=== PATIENT | male | born 1970 | race American Indian/Alaskan Native ===

== ENCOUNTER 2017-05-31 21:59 | Observation (INO) | payer MEDICARE, MEDICAID, OTHER ==
[2017-05-31 21:59] VITALS: PULSE 112
[2017-05-31 22:27] VITALS: BMI 29.0
[2017-05-31] MEDS ORDERED: Morphine 4 mg/ml ISec IVP STA (22:42)
[2017-05-31 23:09] LABS: BASO # 0.02 K/mm3 (0.0-2.0); BASO % 0.3 % (0.0-3.0); EOS % 0.5 % (1.5-5.0); GRAN # 6.2 (1.4-6.5); GRAN % 79.6 % (50.0-68.0); HEMATOCRIT 42.7 % (42.0-52.0); LYMPH % 13.1 % (22.0-35.0); MEAN CELL VOLUME 89.1 fl (80.0-105.0); MEAN CORPUSCULAR HEMOGLOBIN 31.1 pg (25.0-35.0); MEAN CORPUSCULAR HGB CONC 34.9 g/dl (31.0-37.0); MEAN PLATELET VOLUME 9.7 fl (7.0-11.0); MONO # 0.5 (0.1-0.6); MONO % 6.5 % (1.0-6.0); RED CELL DISTRIBUTION WIDTH 13.9 % (11.5-14.5); WHITE BLOOD COUNT 7.8 10^3/ul (4.5-11.0)
--- NOTE | 2017-05-31 23:14 | ED PDOC ---
Arrival/HPI - General Chief Complaint: Abdominal Pain Time Seen by Provider: 05/31/17 22:42 Historian: Patient - History of Present Illness Narrative History of Present Illness (Text): 05/31/17 23:05 A 46 year old male whose past medical history includes CHF and diabetes, presents to the emergency department complaining of a right femoral hernia and bilateral lower extremity swelling. The patient states that he has had the hernia for the past year, but has not seen his PMD. The patient notes that he had nausea yesterday. The patient denies fevers, chills, headache, dizziness, vomiting, diarrhea, back pain, neck pain, chest pain, shortness of breath or any other complaint. Time/Duration: Other (1 year) Symptom Onset: Sudden Symptom Course: Unchanged Activities at Onset: Rest, Light Context: Home Past Medical History - Provider Review Nursing Documentation Reviewed: Yes - Infectious Disease Hx of Infectious Diseases: None - Cardiac Hx Congestive Heart Failure: Yes Hx Hypertension: Yes Other/Comment: defibrillator - Pulmonary Hx Respiratory Disorders: No - Neurological Hx Neurological Disorder: No - HEENT Hx HEENT Disorder: No - Renal Hx Renal Disorder: No - Endocrine/Metabolic Hx Diabetes Mellitus Type 2: Yes - Hematological/Oncological Hx Blood Disorders: No - Integumentary Hx Dermatological Disorder: No - Musculoskeletal/Rheumatological Hx Musculoskeletal Disorders: No - Gastrointestinal Hx Gastrointestinal Disorders: No - Genitourinary/Gynecological Hx Genitourinary Disorders: No - Psychiatric Hx Psychophysiologic Disorder: No Hx Substance Use: No - Surgical History Hx Cholecystectomy: Yes Other/Comment: defibrilator, gallbladder removed. - Anesthesia Hx Anesthesia: Yes Hx Anesthesia Reactions: No Hx Malignant Hyperthermia: No Family/Social History - Physician Review Nursing Documentation Reviewed: Yes Family/Social History: No Known Family HX Smoking Status: Light Smoker < 10 Cigarettes Daily Hx Alcohol Use: Yes Hx Substance Use: No Allergies/Home Meds Allergies/Adverse Reactions: Allergies lisinopril Allergy (Verified 10/29/16 22:31) ANGIOEDEMA Home Medications: Home Meds Medication Instructions Recorded Confirmed No Known Home Med 06/01/17 06/01/17 Physical Exam - Physical Exam Narrative Physical Exam (Text): - Review of Systems Constitutional: Normal. absent: Fatigue, Weight Change, Fevers Eyes: Normal ENT: Normal Respiratory: Normal absent: SOB, Cough, Sputum Cardiovascular: Normal absent: Chest pain, Palpitations, Syncope Gastrointestinal: (+) femoral hernia, Nausea. absent: Diarrhea, Vomiting Genitourinary: Present: Normal absent: Dysuria, Frequency, Hematuria Musculoskeletal: (+) lower extremity swelling . absent: Arthralgias, Back Pain , Neck Pain Skin: Normal Neurological: Normal absent: Focal Weakness Endocrine: Normal Hemo/Lymphatic: Normal Psychiatric: Normal - Physical exam Patient appears age appropriate, speaking full sentences without difficulty - Systems Exam Head: Present: Atraumatic, Normocephalic Pupils: Present: PERRL Extraocular Muscles: Present: EOMI Conjunctiva: Present: Normal Mouth: Present: Moist Mucous Membranes Neck: Present: Normal Range of Motion. No: MIDLINE TENDERNESS, Paraspinal Tenderness Respiratory/Chest: Present: Clear to Auscultation, Good Air Exchange. No: Respiratory Distress, Accessory Muscle Use, Tachypneic Cardiovascular: Present: Regular Rate and Rhythm, Normal S1, S2, Peripheral Pulses Present. No: Murmurs Abdomen: Present: enlarged, 9cm reducible femoral hernia. Normal Bowel Sounds No: Tenderness, Peritoneal Signs, Rebound, Guarding, Distention Back: Present: Normal Inspection. No: Midline Tenderness, Paraspinal Tenderness Upper Extremity: Present: Normal Inspection. No: Cyanosis, Edema Lower Extremity: Present: Bilateral lower extremity swelling. +1 trace edema Neurological: Present: GCS=15, Speech Normal, cranial nerves II through XII fully intact with no cerebellar abnormality, neuro-sensory fully intact. No focal neurological deficits. Skin: Present: Warm, Dry, Normal Color. No: Rashes Lymphatic: Present: OX3, NI, NC Psychiatric: Present: Alert, Oriented x 3, Normal Insight, Normal Concentration Vital Signs Reviewed: Yes Vital Signs Temp Pulse Resp BP Pulse Ox 06/01/17 01:18 89 17 124/75 98 06/01/17 01:13 124/75 05/31/17 23:28 98.7 F 05/31/17 22:55 105 H 18 127/82 98 Temperature: Afebrile Blood Pressure: Normal Pulse: Regular Respiratory Rate: Normal Appearance: Positive for: Well-Appearing, Non-Toxic, Comfortable Pain Distress: None Mental Status: Positive for: Alert and Oriented X 3 Medical Decision Making ED Course and Treatment: 05/31/17 23:23 Impression: A 46 year old male presents with pain around his femoral hernia and lower extremity swelling. On exam, enlarged, 9cm reducible femoral hernia and bilateral lower extremity swelling. Plan: -- EKG -- Abdomen/ Pelvis CT -- Chest X-Ray -- Urinalysis -- Morphine -- Reassess and disposition Progress Notes: 06/01/17 01:02 CT IMPRESSION: 1. No hernia. 2. Incidental/non-acute findings are described above. Dictated and Authenticated by: Vincenzo Cote MD BNP elevated CXR shows cardiomegaly, mild vasc congestion, no infiltrates. interpreted by me. pt will be observed on tele for acute CHF 06/01/17 01:[address] He, accepted obs to hospitalist service pt aware of and agrees with plan 06/01/17 01:11 EKG shows normal sinus 82 bpm, no st-segment elevations. lateral t-wave inversions. interpreted by me. - Lab Interpretations Lab Results: 05/31/17 22:55 05/31/17 22:55 Lab Results 06/01/17 01:00: Urine Color Yellow, Urine Appearance Clear, Urine pH 7.0, Ur Specific [place] 1.010, Urine Protein Negative, Urine Glucose (UA) Negative, Urine Ketones Negative, Urine Blood Negative, Urine Nitrate Negative, Urine Bilirubin Negative, Urine Urobilinogen 0.2, Ur Leukocyte Esterase Negative 05/31/17 23:40: Blood Type Confirm AB POSITIVE 05/31/17 22:55: Sodium 136, Potassium 3.4 L, Chloride 95 L, Carbon Dioxide 33, Anion Gap 11, BUN 23 H, Creatinine 1.1, Est GFR ( Amer) > 60, Est GFR ( Non-Af Amer) > 60, Random Glucose 178 H, Calcium 8.7, Total Bilirubin 1.5 H, AST 49, ALT 99 H, Alkaline Phosphatase 85, Lactate Dehydrogenase 483, Total Creatine Kinase 161, Troponin I 0.05, NT-Pro-B Natriuret Pep 4830 H, Total Protein 6.7, Albumin 3.8, Globulin 2.9, Albumin/Globulin Ratio 1.3 05/31/17 22:55: PT 12.6 H, INR 1.17 H, APTT 25.2 05/31/17 22:55: WBC 7.8, RBC 4.79, Hgb 14.9, Hct 42.7, MCV 89.1, MCH 31.1, MCHC 34.9, RDW 13.9, Plt Count 227, MPV 9.7, Gran % 79.6 H, Lymph % (Auto) 13.1 L, Fleming % (Auto) 6.5 H, Eos % (Auto) 0.5 L, Baso % (Auto) 0.3, Gran # 6.20, Lymph # 1.0 L, Fleming # 0.5, Eos # 0.0, Baso # 0.02 05/31/17 22:55: Blood Type AB POSITIVE, Antibody Screen Negative, BBK History Checked No verified bt I have reviewed the lab results: Yes - RAD Interpretation Radiology Orders: 05/31/17 22:43 ABD & PELVIS W/O PO OR IV CONT [CT] Stat 05/31/17 22:44 CHEST PORTABLE [RAD] Stat - EKG Interpretation Interpreted by ED Physician: Yes Type: 12 lead EKG - Medication Orders Current Medication Orders: Insulin Human Lispro (Humalog Low) 0 units SC ACHS MICHELLE PRN Reason: Protocol Discontinued Medications Aspirin (Aspirin Chewable) 324 mg PO STAT STA Stop: 06/01/17 01:01 Last Admin: 06/01/17 01:12 Dose: 324 mg Furosemide (Lasix) 40 mg IVP STAT STA Stop: 06/01/17 01:01 Last Admin: 06/01/17 01:13 Dose: 40 mg Morphine Sulfate (Morphine) 4 mg IVP STAT STA Stop: 05/31/17 22:43 Last Admin: 05/31/17 23:10 Dose: 4 mg Nitroglycerin (Nitrostat Sl Tab) 0.3 mg SL STAT STA Stop: 06/01/17 01:01 Last Admin: 06/01/17 01:10 Dose: 0.3 mg - Scribe Statement The provider has reviewed the documentation as recorded by the Jaiden Dejesus Provider Scribe Attestation: All medical record entries made by the Jaiden were at my direction and personally dictated by me. I have reviewed the chart and agree that the record accurately reflects my personal performance of the history, physical exam, medical decision making, and the department course for this patient. I have also personally directed, reviewed, and agree with the discharge instructions and disposition Disposition/Present on Arrival - Present on Arrival Any Indicators Present on Arrival: No History of DVT/PE: No History of Uncontrolled Diabetes: No Urinary Catheter: No History of Decub. Ulcer: No History Surgical Site Infection Following: None - Disposition Have Diagnosis and Disposition been Completed?: Yes Diagnosis: CHF (congestive heart failure) Disposition: HOSPITALIZED Disposition Time: 01:07 Patient Plan: Observation Patient Problems: Current Active Problems Problem Status Onset CHF (congestive heart failure) Acute Condition: FAIR
[2017-05-31 23:18] LABS: ALB/GLOB RATIO 1.3 (1.1-1.8); ALKALINE PHOSPHATASE 85 U/L (38-126); ALT/SGPT 99 U/L (7-56); AST/SGOT 49 U/L (17-59); BILIRUBIN,TOTAL 1.5 mg/dL (0.2-1.3); BLOOD UREA NITROGEN 23 mg/dL (7-21); CALCIUM 8.7 mg/dL (8.4-10.5); CARBON DIOXIDE 33 mmol/L (21-33); CHLORIDE 95 mmol/L (98-107); GFR AFRICAN-AMERICAN > 60; GLUCOSE,RANDOM 178 mg/dL (70-110); POTASSIUM 3.4 mmol/L (3.6-5.0); SODIUM 136 mmol/L (132-148); TOTAL PROTEIN 6.7 g/dL (5.8-8.3)
[2017-05-31 23:19] LABS: INR 1.17 (0.93-1.08); PARTIAL THROMBOPLASTIN TIME 25.2 Seconds (23.7-30.8)
[2017-05-31 23:30] LABS: TROPONIN I 0.05 ng/mL
--- NOTE | 2017-06-01 00:51 | CT ---
EXAM: CT Abdomen and Pelvis Without Intravenous Contrast CLINICAL HISTORY: 46 years old, male; Signs and symptoms; Other: Hernia TECHNIQUE: Axial computed tomography images of the abdomen and pelvis without intravenous contrast. All CT scans at this facility use one or more dose reduction techniques, viz.: automated exposure control; ma/kV adjustment per patient size (including targeted exams where dose is matched to indication; i.e. head); or iterative reconstruction technique. Coronal and sagittal reformatted images were created and reviewed. COMPARISON: No relevant prior studies available. FINDINGS: Lower thorax: Cardiac lead. Mild cardiomegaly. Trace focal pericardial effusion. Minimal atelectasis/scarring. Elevated RIGHT hemidiaphragm. ABDOMEN: Liver: Unremarkable. Gallbladder and bile ducts: Cholecystectomy. No ductal dilation. Minimal pneumobilia. Pancreas: Unremarkable. No ductal dilation. Spleen: No splenomegaly. Adrenals: No mass. Kidneys and ureters: No renal calculi. No hydronephrosis. Stomach and bowel: No definite mural thickening. No obstruction. Appendix: Normal caliber. No inflammation. PELVIS: Bladder: Unremarkable. No stones. Reproductive: Unremarkable as visualized. ABDOMEN and PELVIS: Intraperitoneal space: No significant fluid collection. No free air. Bones/joints: Mild degenerative changes of spine. No acute fracture. Soft tissues: Mild diffuse stranding within subcutaneous tissues. Vasculature: Mild atherosclerotic disease. No aneurysm. Lymph nodes: No pathologically enlarged lymph nodes. IMPRESSION: 1. No hernia. 2. Incidental/non-acute findings are described above.
[2017-06-01 01:51] LABS: URINE BILIRUBIN NEGATIVE (NEGATIVE); URINE BLOOD NEGATIVE (NEGATIVE); URINE GLUCOSE (UA) NEGATIVE (NEGATIVE); URINE KETONE NEGATIVE (NEGATIVE); URINE LEUKOCYTE ESTERASE NEGATIVE Leu/uL (NEGATIVE); URINE PROTEIN NEGATIVE mg/dL (<30 mg/dL); URINE UROBILINOGEN 0.2 E.U./dL (<1 E.U./dL)
[2017-06-01 02:02] LABS: URINE APPEARANCE CLEAR (CLEAR); URINE COLOR YELLOW (YELLOW)
--- NOTE | 2017-06-01 03:22 | CP.PCM.HP ---
<Yvon Humphreys - Last Filed: 06/01/17 06:08> History of Present Illness - History of Present Illness History of Present Illness: 45 year old male with past medical history includes hypertension, CHF ( ejection fraction of 15-20%) , pacemaker, and diabetes, who presents to the ED complaining of a hernia which is painful and increasing in size. He states he has had the hernia for over a year now but is now getting worse. He states before he was able to push it back in but currently it will not manually reduce. He also states he has had some lower extremity swelling in the past few days. He has had swelling like this before since being diagnosed with CHF back in 1999. Patient denies any chest pain, SOB, fever, chills, headache, dizziness , N/V/D. He wants to have surgery to repair the hernia. PMH: hypertension, CHF (ejection fraction of 15-20%) , pacemaker, and diabetes PSH: cholecystectomy Social: tobacco: smoked 10 cigarettes a day, alcohol use: socially, drug use: cocaine and marijuana Family hx: father had heart issues, mother is healthy Allergies: TORY Inhibitors: swelling Medications: Metformin, coreg, find out the res of medications Present on Admission - Present on Admission Any Indicators Present on Admission: No Review of Systems - Constitutional Constitutional: absent: Chills, Excessive Sweating - EENT Eyes: absent: Change in Vision - Cardiovascular Cardiovascular: absent: Chest Pain, Dyspnea, Dyspnea on Exertion, Irregular Heart Rhythm - Respiratory Respiratory: absent: Dyspnea, Dyspnea on Exertion - Gastrointestinal Gastrointestinal: absent: Abdominal Pain - Integumentary Integumentary: Swelling Additional comments: swelling of the legs Past Patient History - Infectious Disease Hx of Infectious Diseases: None - Past Social History Smoking Status: Light Smoker < 10 Cigarettes Daily - CARDIAC Hx Congestive Heart Failure: Yes Hx Hypertension: Yes Other/Comment: defibrillator - PULMONARY Hx Respiratory Disorders: No - NEUROLOGICAL Hx Neurological Disorder: No - HEENT Hx HEENT Problems: No - RENAL Hx Chronic Kidney Disease: No - ENDOCRINE/METABOLIC Hx Diabetes Mellitus Type 2: Yes - HEMATOLOGICAL/ONCOLOGICAL Hx Blood Disorders: No - INTEGUMENTARY Hx Dermatological Problems: No - MUSCULOSKELETAL/RHEUMATOLOGICAL Hx Musculoskeletal Disorders: No - GASTROINTESTINAL Hx Gastrointestinal Disorders: No - GENITOURINARY/GYNECOLOGICAL Hx Genitourinary Disorders: No - PSYCHIATRIC Hx Psychophysiologic Disorder: No Hx Substance Use: No - SURGICAL HISTORY Hx Cholecystectomy: Yes Other/Comment: defibrilator, gallbladder removed. - ANESTHESIA Hx Anesthesia: Yes Hx Anesthesia Reactions: No Hx Malignant Hyperthermia: No Meds Allergies/Adverse Reactions: Allergies Allergy/AdvReac Type Severity Reaction Status Date / Time lisinopril Allergy ANGIOEDEMA Verified 10/29/16 22:31 Physical Exam - Constitutional Appears: No Acute Distress - Head Exam Head Exam: ATRAUMATIC, NORMAL INSPECTION, NORMOCEPHALIC - Eye Exam Eye Exam: EOMI, Normal appearance, PERRL - Respiratory Exam Respiratory Exam: Clear to Auscultation Bilateral, NORMAL BREATHING PATTERN - Cardiovascular Exam Cardiovascular Exam: REGULAR RHYTHM, +S1, +S2 - GI/Abdominal Exam GI & Abdominal Exam: Normal Bowel Sounds - Extremities Exam Additional comments: bilateral lower leg edema 1+ edema - Neurological Exam Neurological exam: CN II-XII Intact, Oriented x3 - Psychiatric Exam Psychiatric exam: Normal Mood Results - Vital Signs Recent Vital Signs: Last Vital Signs Temp 98.7 F 05/31/17 23:28 Pulse 82 06/01/17 03:06 Resp 17 06/01/17 03:06 BP 111/76 06/01/17 03:06 Pulse Ox 99 06/01/17 03:06 - Labs Result Diagrams: 05/31/17 22:55 05/31/17 22:55 Assessment & Plan - Assessment and Plan (Free Text) Assessment: 45 year old male with past medical history includes hypertension, CHF ( ejection fraction of 15-20%) , pacemaker, and diabetes, who presents to the ED complaining of a hernia which is painful and increasing in size. He states he has had the hernia for over a year now but is now getting worse. He states before he was able to push it back in but currently it will not manually reduce. He also states he has had some lower extremity swelling in the past few days. He is being worked up for the hernia. Plan: 1. Hernia -likely umbilical -Echo ordered -surgery consulted -Cardiology consulted 2. CHF- -continue home medications 3. DM -hold oral hypoglycemic -placed on sliding scale -Hemoglobin a1C level ordered <Aamir He - Last Filed: 06/01/17 07:03> Results - Vital Signs Recent Vital Signs: Last Vital Signs Temp 98.1 F 06/01/17 06:00 Pulse 86 06/01/17 06:00 Resp 18 06/01/17 06:00 BP 98/69 L 06/01/17 06:00 Pulse Ox 95 06/01/17 06:00 - Labs Result Diagrams: 05/31/17 22:55 05/31/17 22:55 Attending/Attestation - Attestation I have personally seen and examined this patient.: Yes I have fully participated in the care of the patient.: Yes I have reviewed all pertinent clinical information: Yes Notes (Text): 46 M with h/o nonischemic cardiomyopathy, s/p aicd, niddm, tobacco abuse comes with right sided intermittently painful inguinal hernia. Upon exam exam small hernial opening leading to swelling that gets painful as it expands and slow painful insertion back but reduces completely. Patient denies orthopnea, said had recent excercise stress test which was negative but doesn't know details of the level. Plan Surgery consult Echo Confirm home meds and restart Cardiology consult for clearance. See orders for detail.
[2017-06-01] MEDS ORDERED: Potassium Chloride 20 mEq ER Tab PO STA (03:23)
--- NOTE | 2017-06-01 03:49 | CP.PCM.CON ---
History of Present Illness - History of Present Illness History of Present Illness: SURGERY CONSULT NOTE FOR DR. DEL ROSARIO 46M presents to [facility] with right groin pain that has been on and off for a year. Pain is associated with a right groin hernia that is reducible. He states he has not had any issues with passing gas and having bowel movements. However, today he experience some vomiting after eating, He denies fevers or chills. He states he is usually constantly wrapping a belt with a pressure dressing on the hernia in attempts to keep it reduced but today the pain became too much. Patient was diagnosed with CHF year ago and decided on some lifestyle changes. He has lost 100lbs since October. He has a pacemaker placed that he says was placed in [place]. PMH: CHF (last EF 20%) PSH: Pacemaker, Cholecystectomy Social: denies alcohol abuse, admits to tobacco abuse, marijuana, cocaine use? Allergies: ACEi (angioedema) Past Patient History - Infectious Disease Hx of Infectious Diseases: None - Past Social History Smoking Status: Light Smoker < 10 Cigarettes Daily - CARDIAC Hx Congestive Heart Failure: Yes Hx Hypertension: Yes Other/Comment: defibrillator - PULMONARY Hx Respiratory Disorders: No - NEUROLOGICAL Hx Neurological Disorder: No - HEENT Hx HEENT Problems: No - RENAL Hx Chronic Kidney Disease: No - ENDOCRINE/METABOLIC Hx Diabetes Mellitus Type 2: Yes - HEMATOLOGICAL/ONCOLOGICAL Hx Blood Disorders: No - INTEGUMENTARY Hx Dermatological Problems: No - MUSCULOSKELETAL/RHEUMATOLOGICAL Hx Musculoskeletal Disorders: No - GASTROINTESTINAL Hx Gastrointestinal Disorders: No - GENITOURINARY/GYNECOLOGICAL Hx Genitourinary Disorders: No - PSYCHIATRIC Hx Psychophysiologic Disorder: No Hx Substance Use: No - SURGICAL HISTORY Hx Cholecystectomy: Yes Other/Comment: defibrilator, gallbladder removed. - ANESTHESIA Hx Anesthesia: Yes Hx Anesthesia Reactions: No Hx Malignant Hyperthermia: No Meds Allergies/Adverse Reactions: Allergies Allergy/AdvReac Type Severity Reaction Status Date / Time lisinopril Allergy ANGIOEDEMA Verified 10/29/16 22:31 - Medications Medications: Current Medications Insulin Human Lispro (Humalog Low) 0 units SC ACHS MICHELLE PRN Reason: Protocol Physical Exam - Constitutional Appears: Non-toxic, No Acute Distress - Head Exam Head Exam: ATRAUMATIC - ENT Exam ENT Exam: Mucous Membranes Moist - Respiratory Exam Respiratory Exam: Clear to Auscultation Bilateral, NORMAL BREATHING PATTERN - Cardiovascular Exam Cardiovascular Exam: REGULAR RHYTHM, +S1, +S2 Additional comments: pacemaker scar noted - GI/Abdominal Exam GI & Abdominal Exam: Mass (right groin region - hernia noted, reducible, no discoloration. ), Soft. absent: Distended, Firm, Guarding, Rebound, Rigid - Extremities Exam Extremities exam: Negative for: pedal edema, tenderness - Neurological Exam Neurological exam: Alert, Oriented x3 - Psychiatric Exam Psychiatric exam: Normal Affect, Normal Mood - Skin Skin Exam: Dry, Intact, Normal Color, Warm Results - Vital Signs Recent Vital Signs: Last Vital Signs Temp 98.7 F 05/31/17 23:28 Pulse 82 06/01/17 03:06 Resp 17 06/01/17 03:06 BP 111/76 06/01/17 03:06 Pulse Ox 99 06/01/17 03:06 - Labs Result Diagrams: 05/31/17 22:55 05/31/17 22:55 Assessment & Plan - Assessment and Plan (Free Text) Assessment: 46M with right groin hernia, femoral, reducible Plan: - pain control - monitor hernia - cardiac evaluation/clearance needed - inpatient OR vs Elective TBD Discussed with Dr. Pasha Patel, PGY2
[2017-06-01 06:37] VITALS: PULSE 86; O2SAT 95
[2017-06-01 09:06] LABS: TROPONIN I 0.06 ng/mL
[2017-06-01 09:28] LABS: ALB/GLOB RATIO 1.1 (1.1-1.8); ALKALINE PHOSPHATASE 77 U/L (38-126); ALT/SGPT 83 U/L (7-56); AST/SGOT 42 U/L (17-59); BILIRUBIN,TOTAL 0.9 mg/dL (0.2-1.3); BLOOD UREA NITROGEN 26 mg/dL (7-21); CALCIUM 8.4 mg/dL (8.4-10.5); CARBON DIOXIDE 32 mmol/L (21-33); CHLORIDE 99 mmol/L (98-107); CHOLESTEROL 134 mg/dL (130-200); GFR AFRICAN-AMERICAN > 60; GLUCOSE,RANDOM 111 mg/dL (70-110); MAGNESIUM 1.3 mg/dL (1.7-2.2); POTASSIUM 3.5 mmol/L (3.6-5.0); SODIUM 138 mmol/L (132-148); TOTAL PROTEIN 5.8 g/dL (5.8-8.3)
[2017-06-01] MEDS ORDERED: Magnesium Sulfate 2 GM in Sodium Chloride 0.9% 100 ML IV ONE (09:55)
[2017-06-01] MEDS ORDERED: Potassium Chloride 20 mEq ER Tab PO ONE (09:55)
[2017-06-01] MEDS: Insulin Lispro (humaLOG) LOW Coverage SC SCH ×2 (10:22→13:13)
--- NOTE | 2017-06-01 10:31 | RAD ---
HISTORY: cough COMPARISON: Comparison is made to 10/30/2016 FINDINGS: LUNGS: Interval improvement in the lungs since the previous exam. No evidence of new infiltrate or consolidation in the lungs. PLEURA: No significant pleural effusion identified, no pneumothorax apparent. CARDIOVASCULAR: The cardiac silhouette is enlarged. Left-sided single lead pacemaker is again seen in place OSSEOUS STRUCTURES: No significant abnormalities. VISUALIZED UPPER ABDOMEN: Normal. OTHER FINDINGS: None. IMPRESSION: No active disease.
--- NOTE | 2017-06-01 13:01 | PN ---
DATE: 06/01/2017 CARDIOLOGY ADDENDUM Preliminary echocardiogram reveals dilated, diffusely hypokinetic LV with an ejection fraction of approximately 10%. Given these findings, the patient's cardiac risk for any anesthesia or surgery would be at high risk. I have advised that the patient needs to have his potassium and his magnesium corrected. I have discussed this with the patient in detail. Saturnino Contreras MD
[2017-06-01 14:14] LABS: TROPONIN I 0.04 ng/mL
[2017-06-01 14:50] VITALS: BP 109/63; RESP 17; TEMP 98.3
--- NOTE | 2017-06-01 16:47 | CARD ---
APPROVED REPORT EKG Measurement Heart [id number] <Conclusion> Normal sinus rhythm Possible Left atrial enlargement Left axis deviation T wave abnormality, consider lateral ischemia
--- NOTE | 2017-06-01 18:28 | CARD ---
APPROVED REPORT EXAM: Two-dimensional and M-mode echocardiogram with Doppler and color Doppler. INDICATION Congestive Heart Failure 2D DIMENSIONS Left Atrium (2D)5.6 (1.6-4.0cm)IVSd1.2 (0.7-1.1cm) LVDd7.7 (3.9-5.9cm)PWd1.2 (0.7-1.1cm) LVDs7.4 (2.5-4.0cm)FS (%) 4.0 % LVEF (%)8.8 (>50%) M-Mode DIMENSIONS Aortic Root3.40 (2.2-3.7cm)Aortic Cusp Exc.1.80 (1.5-2.0cm) Aortic Valve AoV Peak Qkuqbrbo700.0cm/Feng Peak GR.4mmHg Mitral Valve MV E Lecayaoq52.8cm/sMV A Wdbsfilg28.1cm/sE/A ratio1.7 TDI E/Lateral E'0.0E/Medial E'0.0 Tricuspid Valve TR Peak [id number]/sRAP [id number] Peak Gr.40mmHg [id number] LEFT VENTRICLE The Left Ventricle is severely dilated. There is mild concentric left ventricular hypertrophy. The systolic function is severely impaired.Ef-10-15% There is severe global hypokinesis of the left ventricle. Transmitral Doppler flow pattern is Grade II-pseudonormal filling dynamics. No left ventricle thrombus noted on this study. There is no ventricular septal defect visualized. There is no left ventricular aneurysm. There is no mass noted in the left ventricle. RIGHT VENTRICLE The right ventricle is mildly dilated. There is normal right ventricular wall thickness. Systolic function is mildly reduced. There is a pacemaker lead in the right ventricle. ATRIA The left atrium is moderately dilated. The right atrium size is normal. There is a catheter/pacemaker lead seen in the right atrium. The interatrial septum is intact with no evidence for an atrial septal defect. AORTIC VALVE The aortic valve is thickened but opens well. No aortic regurgitation is present. There is no aortic valvular stenosis. There is no aortic valvular vegetation. MITRAL VALVE The mitral valve is thickened but opens well. Mitral regurgitation is severe. There is no mitral valve stenosis. There is no evidence of mitral valve prolapse. TRICUSPID VALVE The tricuspid valve leaflets are thickened , but open well. There is severe tricuspid regurgitation.RVSP_50 mmof Hg. There is no tricuspid valve stenosis. PULMONIC VALVE The pulmonary valve is normal in structure. There is no pulmonic valvular regurgitation. There is no pulmonic valvular stenosis. GREAT VESSELS The aortic root is normal in size. The ascending aorta is normal in size. The pulmonary artery is normal. The IVC is normal in size and collapses >50% with inspiration. PERICARDIAL EFFUSION There is no pleural effusion. There is no pericardial effusion. <Conclusion> The Left Ventricle is severely dilated. The systolic function is severely impaired.Ef-10-15% Mitral regurgitation is severe. There is severe tricuspid regurgitation.RVSP_50 mmof Hg. The IVC is normal in size and collapses >50% with inspiration. There is no pericardial effusion. no vegetation or thrombus noted.
--- NOTE | 2017-06-01 20:24 | CON ---
DATE: 06/01/2017 CARDIOLOGY CONSULTATION HISTORY OF PRESENT ILLNESS: The patient is a 46-year-old male who presents who presents with right femoral hernia with some swelling in the lower extremities. The patient has been noncompliant with followup with physicians. The patient's past medical history is notable for severe dilated cardiomyopathy treated with medications as well as an ICD placed in [facility]. The patient has not followed up for many years. The patient suffers from diabetes mellitus and is on no medications. He states he has lost a tremendous amount of weight and does not believe his heart is a problem. He states he can walk as far as he needs to walk. PHYSICAL EXAMINATION: VITAL SIGNS: Blood pressure varies from 98 systolic to 124 systolic. NECK: Negative JVD. LUNGS: Without rales. HEART: Reveals S1 and S2. EXTREMITIES: Without edema. EKG shows normal sinus rhythm, left anterior hemiblock with abnormal ST-T changes. LABORATORY DATA: Troponin 0.06. Pro-BNP is 4830, glucose is 111, BUN and creatinine unremarkable with a hemoglobin 14.9. IMPRESSION: 1. History of a dilated cardiomyopathy. 2. Pedal edema. 3. Femoral hernia. 4. Mild systolic congestive heart failure. PLAN: Given these findings, we will need to evaluate his LV function prior to potential surgery for his femoral hernia. The patient is noncompliant and refuses to hear anymore about following up with doctors or having his ICD checked. Saturnino Contreras MD
--- NOTE | 2017-06-01 22:44 | CON ---
DATE: 06/01/2017 HISTORY OF PRESENT ILLNESS: The patient is a 46-year-old male who presents with a femoral hernia. The patient's past medical history is notable for severe dilated cardiomyopathy and has had a defibrillator placed several years ago. 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 He does follow with his doctors. He denies shortness of breath at rest, but does admit to shortness of breath on increased exertion. His past medical history in terms of medication is unknown. The patient appears to be noncompliant. He denies alcohol use. He does admit to smoking and he denies drug use. REVIEW OF SYSTEMS: The patient is agitated and does not want to hear about his weak heart. PHYSICAL EXAMINATION: VITAL SIGNS: Blood pressures vary from 198 to 110. NECK: Negative JVD. LUNGS: Without rales. HEART: S1, S2. EXTREMITIES: Without edema. DIAGNOSTIC DATA: EKG shows diffuse ST-T changes. Laboratories: Hemoglobin is 14.9. Chemistries: Troponin is 0.06 with a proBNP of 4830. BUN and creatinine unremarkable. Echocardiogram shows poor LV function with an EF of approximately 10%. IMPRESSION: 1. Severe dilated cardiomyopathy. 2. History of implantable cardioverter-defibrillator placement. 3. Mild, acute, systolic congestive heart failure. 4. Pedal edema. 5. Femoral hernia Given these findings, given the patient's cardiac status with his poor ventricle, the patient will be at high risk for any surgical procedure. I have discussed this with the patient. He wants the surgery done anyway independent of any risk. Saturnino Contreras MD
--- NOTE | 2017-06-01 23:15 | CP.PCM.DIS ---
<DOMINGA PULIDO - Last Filed: 06/01/17 23:11> Provider - Provider Date of Admission: 06/01/17 01:13 Attending physician: Jose Maria Bardales MD Time Spent in preparation of Discharge (in minutes): 40 Hospital Course - Lab Results Lab Results: Most Recent Lab Values WBC 7.8 10^3/ul (4.5-11.0) 05/31/17 22:55 RBC 4.79 10^6/uL (3.5-6.1) 05/31/17 22:55 Hgb 14.9 g/dL (14.0-18.0) 05/31/17 22:55 Hct 42.7 % (42.0-52.0) 05/31/17 22:55 MCV 89.1 fl (80.0-105.0) 05/31/17 22:55 MCH 31.1 pg (25.0-35.0) 05/31/17 22:55 MCHC 34.9 g/dl (31.0-37.0) 05/31/17 22:55 RDW 13.9 % (11.5-14.5) 05/31/17 22:55 Plt Count 227 10^3/uL (120.0-450.0) 05/31/17 22:55 MPV 9.7 fl (7.0-11.0) 05/31/17 22:55 Gran % 79.6 % (50.0-68.0) H 05/31/17 22:55 Lymph % (Auto) 13.1 % (22.0-35.0) L 05/31/17 22:55 [place] % (Auto) 6.5 % (1.0-6.0) H 05/31/17 22:55 Eos % (Auto) 0.5 % (1.5-5.0) L 05/31/17 22:55 Baso % (Auto) 0.3 % (0.0-3.0) 05/31/17 22:55 Gran # 6.20 (1.4-6.5) 05/31/17 22:55 Lymph # 1.0 (1.2-3.4) L 05/31/17 22:55 [place] # 0.5 (0.1-0.6) 05/31/17 22:55 Eos # 0.0 (0.0-0.7) 05/31/17 22:55 Baso # 0.02 K/mm3 (0.0-2.0) 05/31/17 22:55 PT 12.6 Seconds (9.9-11.8) H 05/31/17 22:55 INR 1.17 (0.93-1.08) H 05/31/17 22:55 APTT 25.2 Seconds (23.7-30.8) 05/31/17 22:55 Sodium 138 mmol/L (132-148) 06/01/17 09:03 Potassium 3.5 mmol/L (3.6-5.0) L 06/01/17 09:03 Chloride 99 mmol/L (98-107) 06/01/17 09:03 Carbon Dioxide 32 mmol/L (21-33) 06/01/17 09:03 Anion Gap 11 (10-20) 06/01/17 09:03 BUN 26 mg/dL (7-21) H 06/01/17 09:03 Creatinine 1.0 mg/dL (0.5-1.4) 06/01/17 09:03 Est GFR ( Amer) > 60 06/01/17 09:03 Est GFR (Non-Af Amer) > 60 06/01/17 09:03 POC Glucose (mg/dL) 114 mg/dL (65-110) H 06/01/17 08:03 Random Glucose 111 mg/dL (70-110) H 06/01/17 09:03 Hemoglobin A1c 7.7 % (4.2-6.5) H 05/31/17 22:55 Calcium 8.4 mg/dL (8.4-10.5) 06/01/17 09:03 Magnesium 1.3 mg/dL (1.7-2.2) L 06/01/17 09:03 Total Bilirubin 0.9 mg/dL (0.2-1.3) 06/01/17 09:03 AST 42 U/L (17-59) 06/01/17 09:03 ALT 83 U/L (7-56) H 06/01/17 09:03 Alkaline Phosphatase 77 U/L (38-126) 06/01/17 09:03 Lactate Dehydrogenase 433 U/L (333-699) 06/01/17 13:45 Total Creatine Kinase 102 U/L (35-230) 06/01/17 13:45 Troponin I 0.04 ng/mL D 06/01/17 13:45 NT-Pro-B Natriuret Pep 4830 pg/mL (0-450) H 05/31/17 22:55 Total Protein 5.8 g/dL (5.8-8.3) 06/01/17 09:03 Albumin 3.1 g/dL (3.0-4.8) 06/01/17 09:03 Globulin 2.7 gm/dL 06/01/17 09:03 Albumin/Globulin Ratio 1.1 (1.1-1.8) 06/01/17 09:03 Triglycerides 75 mg/dL (35-160) 06/01/17 09:03 Cholesterol 134 mg/dL (130-200) 06/01/17 09:03 LDL Cholesterol Direct 99 mg/dL (0-129) 06/01/17 09:03 HDL Cholesterol 33 mg/dL (29-60) 06/01/17 09:03 TSH 3rd Generation 2.85 mIU/mL (0.46-4.68) 06/01/17 09:03 Urine Color Yellow (YELLOW) 06/01/17 01:00 Urine Appearance Clear (CLEAR) 06/01/17 01:00 Urine pH 7.0 (4.7-8.0) 06/01/17 01:00 Ur Specific [place] 1.010 (1.005-1.035) 06/01/17 01:00 Urine Protein Negative mg/dL (<30 mg/dL) 06/01/17 01:00 Urine Glucose (UA) Negative mg/dL (NEGATIVE) 06/01/17 01:00 Urine Ketones Negative mg/dL (NEGATIVE) 06/01/17 01:00 Urine Blood Negative (NEGATIVE) 06/01/17 01:00 Urine Nitrate Negative (NEGATIVE) 06/01/17 01:00 Urine Bilirubin Negative (NEGATIVE) 06/01/17 01:00 Urine Urobilinogen 0.2 E.U./dL (<1 E.U./dL) 06/01/17 01:00 Ur Leukocyte Esterase Negative Demetrio/uL (NEGATIVE) 06/01/17 01:00 Blood Type AB POSITIVE 05/31/17 22:55 Blood Type Confirm AB POSITIVE 05/31/17 23:40 Antibody Screen Negative 05/31/17 22:55 BBK History Checked No verified bt 05/31/17 22:55 - Hospital Course Hospital Course: 45 year old male with past medical history includes hypertension, CHF ( ejection fraction of 15-20%) , pacemaker, cocaine and marijuana use (pt unreliable historian) and diabetes, who presents to the ED complaining of a hernia which is painful and increasing in size. He states he has had the hernia for over a year now but is now getting worse. He states before he was able to push it back in but currently it will not manually reduce. He also states he has had some lower extremity swelling in the past few days. He has had swelling like this before since being diagnosed with CHF back in 1999. Patient denies any chest pain, SOB, fever, chills, headache, dizziness, N/V/D. He wants to have surgery to repair the hernia. [facility] saw him. surgery considered the procedure but required cardiac clearance due to his extensive cardiac hx. CT abd and pelvis done and showed no signs of hernia. Cardiology required pt to evaluated his LV function prior to surgery for inguinal hernia, and stated non-compliance with f/u or having his ICD checked as a source of concern. Prelim Echo was done and showed EF ~10% w/ diffusely hypokinetic LV, and cardio stated pt is at high risk for anesthesia or surgery and adviced optimization prior to surgery. Despite discussion w/ scalper operator, pt still required surgery. Surgery team was contacted and they stated that pt should follow up as an outpatient for the elective procedure. Pt was also aggressive and agitated toward the nurses when he was placed NPO due to the possibility and required his breakfast, despite of him being told he might be getting the surgery. When patient was seen this morning, the hernia was noted to be reducible. Pt was told he'd most likely be discharged and he asked for pain medications and got aggressive and nasty when team mentioned they wouldn't be prescribing any narcotics. Pt refused motrin or tylenol for his pain. pt denied any other acute cp, sob, leg swelling, cough, fevers/chills, n/v/d or abdominal pain. Pt cleared to d/c to f/u Dr. Pak on Sunday and was educated and all his questions answered. - Date & Time of H&P Date of H&P: 06/01/17 Time of H&P: 03:20 Discharge Exam - Head Exam Head Exam: ATRAUMATIC, NORMAL INSPECTION, NORMOCEPHALIC - Eye Exam Eye Exam: EOMI, Normal appearance, PERRL Pupil Exam: NORMAL ACCOMODATION - ENT Exam ENT Exam: Normal Exam - Neck Exam Neck exam: Normal Inspection - Respiratory Exam Respiratory Exam: NORMAL BREATHING PATTERN, UNREMARKABLE. absent: Rales, Rhonchi, Wheezes, Respiratory Distress - Cardiovascular Exam Cardiovascular Exam: RRR, +S1, +S2 - GI/Abdominal Exam GI & Abdominal Exam: Hernia (R inguinal, reducible), Normal Bowel Sounds, Soft, Unremarkable. absent: Distended, Guarding, Organomegaly, Tenderness - Extremities Exam Extremities exam: full ROM - Back Exam Back exam: NORMAL INSPECTION - Neurological Exam Neurological exam: Alert, Oriented x3 - Psychiatric Exam Psychiatric exam: Agitated - Skin Skin Exam: Normal Color, Warm Discharge Plan - Follow Up Plan Condition: FAIR Disposition: HOME/ ROUTINE Instructions: Heart Failure (DC), Open Herniorrhaphy (DC), Laparoscopic Hiatal Hernia Repair (DC) Additional Instructions: please follow up with scalper operator outpatient for surgical clearance. Follow up with surgery outpatient, Dr. Pak, at [facility] on Sunday for elective surgery. Referrals: Reggie PARMAR,Malik Black MD [Medical Doctor] - <Jose Maria Bardales - Last Filed: 06/02/17 14:53> Provider - Provider Date of Admission: 06/01/17 01:13 Attending physician: Jose Maria Bardales MD Hospital Course - Lab Results Lab Results: Most Recent Lab Values WBC 7.8 10^3/ul (4.5-11.0) 05/31/17 22:55 RBC 4.79 10^6/uL (3.5-6.1) 05/31/17 22:55 Hgb 14.9 g/dL (14.0-18.0) 05/31/17 22:55 Hct 42.7 % (42.0-52.0) 05/31/17 22:55 MCV 89.1 fl (80.0-105.0) 05/31/17 22:55 MCH 31.1 pg (25.0-35.0) 05/31/17 22:55 MCHC 34.9 g/dl (31.0-37.0) 05/31/17 22:55 RDW 13.9 % (11.5-14.5) 05/31/17 22:55 Plt Count 227 10^3/uL (120.0-450.0) 05/31/17 22:55 MPV 9.7 fl (7.0-11.0) 05/31/17 22:55 Gran % 79.6 % (50.0-68.0) H 05/31/17 22:55 Lymph % (Auto) 13.1 % (22.0-35.0) L 05/31/17 22:55 [place] % (Auto) 6.5 % (1.0-6.0) H 05/31/17 22:55 Eos % (Auto) 0.5 % (1.5-5.0) L 05/31/17 22:55 Baso % (Auto) 0.3 % (0.0-3.0) 05/31/17 22:55 Gran # 6.20 (1.4-6.5) 05/31/17 22:55 Lymph # 1.0 (1.2-3.4) L 05/31/17 22:55 [place] # 0.5 (0.1-0.6) 05/31/17 22:55 Eos # 0.0 (0.0-0.7) 05/31/17 22:55 Baso # 0.02 K/mm3 (0.0-2.0) 05/31/17 22:55 PT 12.6 Seconds (9.9-11.8) H 05/31/17 22:55 INR 1.17 (0.93-1.08) H 05/31/17 22:55 APTT 25.2 Seconds (23.7-30.8) 05/31/17 22:55 Sodium 138 mmol/L (132-148) 06/01/17 09:03 Potassium 3.5 mmol/L (3.6-5.0) L 06/01/17 09:03 Chloride 99 mmol/L (98-107) 06/01/17 09:03 Carbon Dioxide 32 mmol/L (21-33) 06/01/17 09:03 Anion Gap 11 (10-20) 06/01/17 09:03 BUN 26 mg/dL (7-21) H 06/01/17 09:03 Creatinine 1.0 mg/dL (0.5-1.4) 06/01/17 09:03 Est GFR ( Amer) > 60 06/01/17 09:03 Est GFR (Non-Af Amer) > 60 06/01/17 09:03 POC Glucose (mg/dL) 114 mg/dL (65-110) H 06/01/17 08:03 Random Glucose 111 mg/dL (70-110) H 06/01/17 09:03 Hemoglobin A1c 7.7 % (4.2-6.5) H 05/31/17 22:55 Calcium 8.4 mg/dL (8.4-10.5) 06/01/17 09:03 Magnesium 1.3 mg/dL (1.7-2.2) L 06/01/17 09:03 Total Bilirubin 0.9 mg/dL (0.2-1.3) 06/01/17 09:03 AST 42 U/L (17-59) 06/01/17 09:03 ALT 83 U/L (7-56) H 06/01/17 09:03 Alkaline Phosphatase 77 U/L (38-126) 06/01/17 09:03 Lactate Dehydrogenase 433 U/L (333-699) 06/01/17 13:45 Total Creatine Kinase 102 U/L (35-230) 06/01/17 13:45 Troponin I 0.04 ng/mL D 06/01/17 13:45 NT-Pro-B Natriuret Pep 4830 pg/mL (0-450) H 05/31/17 22:55 Total Protein 5.8 g/dL (5.8-8.3) 06/01/17 09:03 Albumin 3.1 g/dL (3.0-4.8) 06/01/17 09:03 Globulin 2.7 gm/dL 06/01/17 09:03 Albumin/Globulin Ratio 1.1 (1.1-1.8) 06/01/17 09:03 Triglycerides 75 mg/dL (35-160) 06/01/17 09:03 Cholesterol 134 mg/dL (130-200) 06/01/17 09:03 LDL Cholesterol Direct 99 mg/dL (0-129) 06/01/17 09:03 HDL Cholesterol 33 mg/dL (29-60) 06/01/17 09:03 TSH 3rd Generation 2.85 mIU/mL (0.46-4.68) 06/01/17 09:03 Urine Color Yellow (YELLOW) 06/01/17 01:00 Urine Appearance Clear (CLEAR) 06/01/17 01:00 Urine pH 7.0 (4.7-8.0) 06/01/17 01:00 Ur Specific [place] 1.010 (1.005-1.035) 06/01/17 01:00 Urine Protein Negative mg/dL (<30 mg/dL) 06/01/17 01:00 Urine Glucose (UA) Negative mg/dL (NEGATIVE) 06/01/17 01:00 Urine Ketones Negative mg/dL (NEGATIVE) 06/01/17 01:00 Urine Blood Negative (NEGATIVE) 06/01/17 01:00 Urine Nitrate Negative (NEGATIVE) 06/01/17 01:00 Urine Bilirubin Negative (NEGATIVE) 06/01/17 01:00 Urine Urobilinogen 0.2 E.U./dL (<1 E.U./dL) 06/01/17 01:00 Ur Leukocyte Esterase Negative Demetrio/uL (NEGATIVE) 06/01/17 01:00 Blood Type AB POSITIVE 05/31/17 22:55 Blood Type Confirm AB POSITIVE 05/31/17 23:40 Antibody Screen Negative 05/31/17 22:55 BBK History Checked No verified bt 05/31/17 22:55 Attending/Attestation - Attestation I have personally seen and examined this patient.: Yes I have fully participated in the care of the patient.: Yes I have reviewed all pertinent clinical information, including history, physical exam and plan: Yes Notes (Text): I have seen and examined the patient at bedside. Agree with the note above with the following additions/ exceptions: Briefly this is 45 year old male with history of HTN, CHF (EF~15-20%), PPM, cocaine and marijuana use, DM-2 who was admitted for evaluation of right sided intermittently painful reducible inguinal hernia. Cardio consult appreciated. Echo revealed EF of 10%. Patient is at high risk for the surgery. Patient was not in pain and he was able to reduce the hernia. Surgery team discussed with the patient that he can follow up with Dr Pak in 1 week. Patient verbalized understanding. Counselling provided regarding polysubstance use. Upon discharge patient will follow up with Dr Pak and PMD. Dr Jose Maria Bardales
== END 2017-06-01 17:44 | disposition home or self-care (01) ==
LOC: ED 21:59 → ERH 06-01 01:13 → 2RNO 06-01 03:40
PROVIDERS: ADMIT Hospitalist; ATTEND Hospitalist
DX: I11.0 Hypertensive heart disease with heart failure (principal); I50.21 Acute systolic (congestive) heart failure; I42.0 Dilated cardiomyopathy; K41.90 Unilateral femoral hernia, without obstruction or gangrene, not specified as recurrent; E11.9 Type 2 diabetes mellitus without complications; F12.90 Cannabis use, unspecified, uncomplicated; F17.210 Nicotine dependence, cigarettes, uncomplicated; F14.90 Cocaine use, unspecified, uncomplicated; Z91.19 Patient's noncompliance with other medical treatment and regimen; Z95.810 Presence of automatic (implantable) cardiac defibrillator
CPT/HCPCS: 36415; 71010; 74176; 80053; 80061; 81003; 82550; 82948; 83036; 83615; 83735; 83880; 84443; 84484; 85025; 85610; 85730; 86850; 86900; 93005; 93306; 96374; 99285; G0378; J1940; J2270; J3475

== ENCOUNTER 2017-06-05 10:25 | Day surgery (SDC) | payer MEDICARE, MEDICAID ==
[2017-06-05 11:53] LABS: BLOOD UREA NITROGEN 17 mg/dL (7-21); CARBON DIOXIDE 33 mmol/L (21-33); CHLORIDE 101 mmol/L (98-107); GFR AFRICAN-AMERICAN > 60; GLUCOSE,RANDOM 130 mg/dL (70-110); POTASSIUM 4.3 mmol/L (3.6-5.0); SODIUM 139 mmol/L (132-148)
[2017-06-05] MEDS ORDERED: Lidocaine 2% Inj (20ml) ONE (14:27)
[2017-06-05] MEDS ORDERED: Bupivacaine 0.5% Inj(30mL) ONE ×2 (14:30→15:21)
[2017-06-05] MEDS ORDERED: Sodium Bicarbonate (8.4%) 50 Meq Syringe ONE (14:35)
[2017-06-05] MEDS ORDERED: Midazolam 2 MG/2 ML VIAL ONE (15:05)
[2017-06-05] MEDS ORDERED: Lidocaine 1% Inj (20ml) ONE (15:21)
[2017-06-05] MEDS ORDERED: Ketamine 10 mg/ml Inj (20 ml) ONE (15:42)
[2017-06-05] MEDS ORDERED: Oxycodone/Acetaminophen 5/325 mg Tab PO PRN (16:41)
[2017-06-05] MEDS ORDERED: HYDROmorphone 0.5 mg/0.5 ml ISec IVP PRN ×2 (16:41)
[2017-06-05] MEDS ORDERED: Lactated Ringer's 1,000 ML IV SCH (16:45)
--- NOTE | 2017-06-05 16:50 | PCM.SURG1 ---
Surgeon's Initial Post Op Note - Surgeon's Notes Surgeon: Dr. Pak Cocoa Bean Roaster: Dr. Wallace PGY-4, Dr. Urena PGY-2 Type of Anesthesia: Block Regional, IV Sedation Pre-Operative Diagnosis: right inguinal hernia Operative Findings: right inguinal hernia Post-Operative Diagnosis: see operative report Operation Performed: open right inguinal hernia repair w/ mesh placement Specimen/Specimens Removed: hernia sac Estimated Blood Loss: EBL {In ML}: 15 Blood Products Given: N/A Drains Used: No Drains Post-Op Condition: Good Date of Surgery/Procedure: 06/05/17 Time of Surgery/Procedure: 16:50
[2017-06-05] MEDS ORDERED: HYDROmorphone 0.5 mg/0.5 ml ISec ONE ×2 (17:25→17:54)
[2017-06-05] MEDS ORDERED: HYDROmorphone 0.5 mg/0.5 ml ISec IVP ONE ×2 (17:27→17:59)
[2017-06-05 19:19] LABS: BASO # 0.01 K/mm3 (0.0-2.0); BASO % 0.1 % (0.0-3.0); EOS % 0.4 % (1.5-5.0); GRAN # 9.67 (1.4-6.5); GRAN % 93.6 % (50.0-68.0); HEMATOCRIT 46.1 % (42.0-52.0); LYMPH # 0.5 (1.2-3.4); LYMPH % 4.9 % (22.0-35.0); MEAN CELL VOLUME 92.2 fl (80.0-105.0); MEAN CORPUSCULAR HEMOGLOBIN 31.4 pg (25.0-35.0); MEAN CORPUSCULAR HGB CONC 34.1 g/dl (31.0-37.0); MEAN PLATELET VOLUME 9.9 fl (7.0-11.0); MONO # 0.1 (0.1-0.6); PLATELET COUNT 246 10^3/uL (120.0-450.0); WHITE BLOOD COUNT 10.3 10^3/ul (4.5-11.0)
[2017-06-05 19:27] LABS: BLOOD UREA NITROGEN 18 mg/dL (7-21); CARBON DIOXIDE 29 mmol/L (21-33); CHLORIDE 100 mmol/L (98-107); GFR AFRICAN-AMERICAN > 60; GLUCOSE,RANDOM 173 mg/dL (70-110); POTASSIUM 5.1 mmol/L (3.6-5.0); SODIUM 138 mmol/L (132-148)
[2017-06-05 20:05] LABS: BAND 6 % (0-2); BASOPHIL 2 % (0.0-1.0); NEUTROPHIL 85 % (50.0-70.0)
[2017-06-05 20:06] LABS: PLATELET ESTIMATE NORMAL (NORMAL)
[2017-06-05] MEDS: Insulin Lispro (humaLOG) MEDIUM Coverage SC SCH (21:34)
[2017-06-06] MEDS ORDERED: Sodium Chloride 0.9% 1,000 ML IV SCH (00:15)
[2017-06-06] MEDS ORDERED: Sodium Chloride 0.9% 500 ML IV STA (01:29)
[2017-06-06] MEDS ORDERED: Oxycodone/Acetaminophen 5/325 mg Tab PO PRN (04:12)
[2017-06-06 05:53] VITALS: O2SAT 98
[2017-06-06 06:58] LABS: HEMATOCRIT 40.7 % (42.0-52.0); MEAN CELL VOLUME 91.1 fl (80.0-105.0); MEAN CORPUSCULAR HEMOGLOBIN 31.1 pg (25.0-35.0); MEAN CORPUSCULAR HGB CONC 34.2 g/dl (31.0-37.0); MEAN PLATELET VOLUME 9.9 fl (7.0-11.0); RED CELL DISTRIBUTION WIDTH 13.6 % (11.5-14.5); WHITE BLOOD COUNT 12.7 10^3/ul (4.5-11.0)
[2017-06-06 07:08] LABS: BLOOD UREA NITROGEN 28 mg/dL (7-21); CALCIUM 8.9 mg/dL (8.4-10.5); CARBON DIOXIDE 28 mmol/L (21-33); CHLORIDE 100 mmol/L (98-107); GFR AFRICAN-AMERICAN > 60; GLUCOSE,RANDOM 186 mg/dL (70-110); MAGNESIUM 1.3 mg/dL (1.7-2.2); POTASSIUM 4.6 mmol/L (3.6-5.0); SODIUM 138 mmol/L (132-148)
[2017-06-06] MEDS: Insulin Lispro (humaLOG) MEDIUM Coverage SC SCH ×2 (07:48→12:40)
[2017-06-06] MEDS ORDERED: Magnesium Sulfate 2 GM in Sodium Chloride 0.9% 100 ML IVPB ONE (09:00)
[2017-06-06] MEDS ORDERED: Non Formulary Medication (Simvastatin [Zocor] 40 MG) PO SCH (10:00)
[2017-06-06] MEDS ORDERED: Lidocaine 5% Patch TD SCH (10:00)
--- NOTE | 2017-06-06 11:28 | CP.PCM.CON ---
<Kianna Menjivar - Last Filed: 06/06/17 15:20> History of Present Illness - History of Present Illness History of Present Illness: Medicine consult note for hospitalist service- Dr Edmonds. Reason for consult: Vtach on tele Patient is a 45 y/o with PMH of htn, NIDDM, CHF (ejection fraction of 15-20%) S/ P PPM, cocaine, tobacco and marijuana abuse whom presented to [facility] for right inguinal hernia repair. Patient was placed on tele post op, and overnight patient developed nonsustained vtach. Patient reported he was asymtomatic during the event. Patient also had episode of hypotension however patient states his BP normally runs low. Patient currently denies cp, sob, n/v/d, denies palpitations, fever or chills. Patient is only complaining of surgical site pain. PMD: Dr Valente, has been prescribing cardiac meds for him. Patient has not seen a field hockey and lacrosse coach recently due to insurance issues. Patient's pacemaker was last interrogated in Oct 2015 when he was admitted in [facility]. Patient has history of ICD shocks, twice when exerting himself and other time due to ICD malfunction. PMH: htn, NIDDM, CHF (ejection fraction of 15-20%) S/P PPM, cocaine, tobacco and marijuana abuse PSH: Cholecystectomy, s/p right inguinal hernia repair. Social: + tobacco abuse, occasional alcohol, admits to cocaine abuse and marijuana. FH: father had heart issues, mother is healthy Allergies: ACEI Medications: Metformin, coreg, Lasix 80 mg bid and corlanor. Review of Systems - Review of Systems All systems: reviewed and no additional remarkable complaints except Review of Systems: As per HPI. Past Patient History - Infectious Disease Hx of Infectious Diseases: None - Past Social History Smoking Status: Light Smoker < 10 Cigarettes Daily Alcohol: Occasional Drugs: Cannabis, Cocaine Home Situation {Lives}: With Family - CARDIAC Hx Congestive Heart Failure: Yes Hx Hypertension: Yes Other/Comment: defibrillator - PULMONARY Hx Respiratory Disorders: No - NEUROLOGICAL Hx Neurological Disorder: No - HEENT Hx HEENT Problems: No - RENAL Hx Chronic Kidney Disease: No - ENDOCRINE/METABOLIC Hx Diabetes Mellitus Type 2: Yes - HEMATOLOGICAL/ONCOLOGICAL Hx Blood Disorders: No - INTEGUMENTARY Hx Dermatological Problems: No - MUSCULOSKELETAL/RHEUMATOLOGICAL Hx Falls: No - GASTROINTESTINAL Hx Gastrointestinal Disorders: No - GENITOURINARY/GYNECOLOGICAL Hx Genitourinary Disorders: No - PSYCHIATRIC Hx Substance Use: Yes (Cocaine 30 years ago) - SURGICAL HISTORY Hx Surgeries: Yes - ANESTHESIA Hx Anesthesia Reactions: No Hx Malignant Hyperthermia: No Meds Home Medications: Home Medication List Medication Instructions Recorded Confirmed Type Magnesium Oxide [Mag-Ox] 400 mg PO BID #6 tab 06/06/17 Rx Allergies/Adverse Reactions: Allergies Allergy/AdvReac Type Severity Reaction Status Date / Time fosinopril [From Monopril] Allergy Severe ANGIOEDEMA Verified 06/05/17 11:28 lisinopril Allergy Severe ANGIOEDEMA Verified 06/05/17 11:28 - Medications Medications: Current Medications Atorvastatin Calcium (Lipitor) 20 mg PO DIN [facility] Last Admin: 06/05/17 19:47 Dose: 20 mg Carvedilol (Coreg) 3.125 mg PO BID [facility] Last Admin: 06/06/17 09:55 Dose: 3.125 mg Furosemide (Lasix) 80 mg PO BID [facility] Last Admin: 06/06/17 10:25 Dose: Not Given Hydromorphone HCl (Dilaudid) 0.5 mg IVP Q4H PRN PRN Reason: Pain, severe (8-10) Last Admin: 06/05/17 22:36 Dose: 0.5 mg Insulin Human Lispro (Humalog Med) 0 units SC [facility] PRN Reason: Protocol Last Admin: 06/06/17 07:48 Dose: 1 units Lidocaine (Lidoderm) 1 ea TD DAILY [facility] Last Admin: 06/06/17 09:40 Dose: 1 ea Metformin HCl (Glucophage) 1,000 mg PO BID [facility] Last Admin: 06/06/17 09:41 Dose: 1,000 mg Ondansetron HCl (Zofran Inj) 4 mg IVP Q6H PRN PRN Reason: Nausea/Vomiting Ondansetron HCl (Zofran Inj) 4 mg IVP ONCE PRN PRN Reason: Nausea/Vomiting Oxycodone/Acetaminophen (Percocet 5/325 Mg Tab) 1 tab PO Q4H PRN PRN Reason: Pain, moderate (4-7) Stop: 06/08/17 16:42 Last Admin: 06/06/17 04:19 Dose: 1 tab Pantoprazole Sodium (Protonix Inj) 40 mg IVP DAILY [facility] Last Admin: 06/06/17 09:41 Dose: 40 mg Physical Exam - Constitutional Appears: No Acute Distress - Head Exam Head Exam: ATRAUMATIC, NORMAL INSPECTION, NORMOCEPHALIC - Eye Exam Eye Exam: EOMI, Normal appearance, PERRL. absent: Scleral icterus Pupil Exam: NORMAL ACCOMODATION, PERRL - ENT Exam ENT Exam: Mucous Membranes Moist - Neck Exam Neck exam: Positive for: Normal Inspection - Respiratory Exam Respiratory Exam: Clear to Auscultation Bilateral, NORMAL BREATHING PATTERN. absent: Prolonged Expiratory Phase, Rales, Rhonchi, Wheezes, Respiratory Distress, Stridor - Cardiovascular Exam Cardiovascular Exam: REGULAR RHYTHM, RRR, +S1, +S2. absent: Gallop, JVD, Rubs, Systolic Murmur - GI/Abdominal Exam GI & Abdominal Exam: Normal Bowel Sounds, Soft. absent: Distended, Firm, Organomegaly, Rebound, Rigid, Tenderness - Extremities Exam Extremities exam: Positive for: normal inspection. Negative for: pedal edema, tenderness - Back Exam Back exam: NORMAL INSPECTION - Neurological Exam Neurological exam: Alert, Oriented x3, Reflexes Normal - Psychiatric Exam Psychiatric exam: Normal Affect, Normal Mood - Skin Skin Exam: Dry, Normal Color, Warm Additional comments: Right inguinal surgical incision site intact, clean and no erythema, no signs of drainage. Results - Vital Signs Recent Vital Signs: Last Vital Signs Temp 97.8 F 06/06/17 05:52 Pulse 89 06/06/17 09:55 Resp 22 06/06/17 05:52 BP 60/60 L 06/06/17 10:25 Pulse Ox 98 06/06/17 05:52 - Labs Result Diagrams: 06/06/17 06:30 06/06/17 06:30 Labs: Laboratory Results - last 24 hr 06/05/17 06/05/17 06/05/17 11:38 19:14 19:14 WBC 10.3 D RBC 5.00 Hgb 15.7 Hct 46.1 MCV 92.2 D MCH 31.4 MCHC 34.1 RDW 14.0 Plt Count 246 MPV 9.9 Gran % 93.6 H Lymph % (Auto) 4.9 L Rooks % (Auto) 1.0 Eos % (Auto) 0.4 L Baso % (Auto) 0.1 Gran # 9.67 H Lymph # 0.5 L Rooks # 0.1 Eos # 0.0 Baso # 0.01 Neutrophils % (Manual) 85 H Band Neutrophils % 6 H Lymphocytes % (Manual) 5 L Monocytes % (Manual) 2 Basophils % (Manual) 2 H Platelet Evaluation Normal Sodium 139 138 Potassium 4.3 5.1 H Chloride 101 100 Carbon Dioxide 33 29 Anion Gap 9 L 14 BUN 17 18 Creatinine 0.9 1.0 Est GFR ( Amer) > 60 > 60 Est GFR (Non-Af Amer) > 60 > 60 Random Glucose 130 H 173 H Calcium 9.0 9.0 Magnesium 06/06/17 06/06/17 06:30 06:30 WBC 12.7 H D RBC 4.47 Hgb 13.9 L Hct 40.7 L MCV 91.1 MCH 31.1 MCHC 34.2 RDW 13.6 Plt Count 224 MPV 9.9 Gran % Lymph % (Auto) Rooks % (Auto) Eos % (Auto) Baso % (Auto) Gran # Lymph # Rooks # Eos # Baso # Neutrophils % (Manual) Band Neutrophils % Lymphocytes % (Manual) Monocytes % (Manual) Basophils % (Manual) Platelet Evaluation Sodium 138 Potassium 4.6 Chloride 100 Carbon Dioxide 28 Anion Gap 15 BUN 28 H Creatinine 1.0 Est GFR ( Amer) > 60 Est GFR (Non-Af Amer) > 60 Random Glucose 186 H Calcium 8.9 Magnesium 1.3 L Assessment & Plan - Assessment and Plan (Free Text) Assessment: Patient is a 45 y/o with PMH of htn, NIDDM, CHF (ejection fraction of 15-20%) S/ P PPM, cocaine, tobacco and marijuana abuse whom presented to [facility] for right inguinal hernia repair. Patient developed 3.8 sec of vtach this am and medicine is being consulted for management. Plan: 1) Non sustained vatch- resolved - 9 beat on the tele monitor. - r/o malfunctioning pacemaker, patient will need pacemaker interrogation - Cardiology is consulted - Will correct electrolytes. - BP stable at around baseline, will discontinue IVF. - Continue to monitor on tele pending cardiology eval. 2) Hypogamnesemia -will replete and continue to monitor 3) h/o dilated cardiomyopathy with poor EF, s/p PPM. - pacemaker interrogation - Patient currently not in SOB - will hold AM dose of lasix and resume the PM dose - Will c/w coreg 4) NIDDM - will continue with metformin - ISS, fingerstick achs and carb controlled diet. 5) Right inguinal hernia s/p hernia repair - post op management, including pain control as per surgery 6) Mild leukocytosis - Likely reactive post operatively - Otherwise patient is afebrile, will continue to monitor. 7) DVT/GI prophylaxis- protonix and scd. Patient seen, examined and case discussed with Dr Epps. - Date & Time Date: 06/06/17 Time: 12:00 <Carlos Epps - Last Filed: 06/06/17 17:14> Results - Vital Signs Recent Vital Signs: Last Vital Signs Temp 98 F 06/06/17 12:00 Pulse 79 06/06/17 14:00 Resp 16 06/06/17 12:00 BP 103/75 06/06/17 12:00 Pulse Ox 98 06/06/17 10:00 - Labs Result Diagrams: 06/06/17 06:30 06/06/17 06:30 Labs: Laboratory Results - last 24 hr 06/05/17 06/05/17 06/06/17 19:14 19:14 06:30 WBC 10.3 D 12.7 H D RBC 5.00 4.47 Hgb 15.7 13.9 L Hct 46.1 40.7 L MCV 92.2 D 91.1 MCH 31.4 31.1 MCHC 34.1 34.2 RDW 14.0 13.6 Plt Count 246 224 MPV 9.9 9.9 Gran % 93.6 H Lymph % (Auto) 4.9 L Rooks % (Auto) 1.0 Eos % (Auto) 0.4 L Baso % (Auto) 0.1 Gran # 9.67 H Lymph # 0.5 L Rooks # 0.1 Eos # 0.0 Baso # 0.01 Neutrophils % (Manual) 85 H Band Neutrophils % 6 H Lymphocytes % (Manual) 5 L Monocytes % (Manual) 2 Basophils % (Manual) 2 H Platelet Evaluation Normal Sodium 138 Potassium 5.1 H Chloride 100 Carbon Dioxide 29 Anion Gap 14 BUN 18 Creatinine 1.0 Est GFR ( Amer) > 60 Est GFR (Non-Af Amer) > 60 Random Glucose 173 H Calcium 9.0 Magnesium 06/06/17 06:30 WBC RBC Hgb Hct MCV MCH MCHC RDW Plt Count MPV Gran % Lymph % (Auto) Rooks % (Auto) Eos % (Auto) Baso % (Auto) Gran # Lymph # Rooks # Eos # Baso # Neutrophils % (Manual) Band Neutrophils % Lymphocytes % (Manual) Monocytes % (Manual) Basophils % (Manual) Platelet Evaluation Sodium 138 Potassium 4.6 Chloride 100 Carbon Dioxide 28 Anion Gap 15 BUN 28 H Creatinine 1.0 Est GFR ( Amer) > 60 Est GFR (Non-Af Amer) > 60 Random Glucose 186 H Calcium 8.9 Magnesium 1.3 L Attending/Attestation - Attestation I have personally seen and examined this patient.: Yes I have fully participated in the care of the patient.: Yes I have reviewed all pertinent clinical information: Yes Notes (Text): 06/06/17 17:05 attending note; Patient seen and examined with resident. Medical evaluation was called for symptomatic nonsustained V. tach noted on weld technician briefly this morning. Patient denies any chest pain, shortness of breath, palpitation with that episode. Hypomagnesemia; IV magnesium given. Status post inguinal hernia repair. tolerating diet well. low blood pressure; secondary to advanced cardiomyopathy. Currently blood pressure is acceptable. IV fluids stopped. Continue low dose Coreg. Hold a.m. dose of Lasix. Patient has AICD; placed 15 years ago. Last interrogation was in . Patient used to follow up with Dr. adames in [place]. Currently getting prescription filled by PMD Dr. Villasenor. patient is medically stable. Suggest cardiology evaluation. patient was also on cloranor. he is getting medications samples from PMD. The diagnosis, follow-up plan discussed with patient in detail. Case discussed with neurosurgical nurse in detail. 06/06/17 17:13
--- NOTE | 2017-06-06 12:09 | CP.PCM.PN ---
Subjective - Date & Time of Evaluation Date of Evaluation: 06/06/17 Time of Evaluation: 12:03 - Subjective Subjective: General Surgery progress note from Dr. Pak PT S&E at bedside. Patient had low blood pressure with systolic in the 80s and 90s overnight. Blood pressure retaken at bedside 100/64. Patient states hes's not tolerating pain well. Overnight resident switched medication to percocet. Patient states percocet does not help. Patient denies F/C, N/V, CP, SOB. Patient admits to flatus and denies BM. Patient admits to pain at inguinal region and tingling at groin on the right. Patient states the prickling sensation also occurred when hernia protruded. Patient tolerated breakfast. Denies N/V, new Lidoderm ordered for pain intolerance, now tolerating pain upon recheck Objective - Vital Signs/Intake and Output Vital Signs (last 24 hours): Temp Pulse Resp BP Pulse Ox 97.8 F 89 22 60/60 L 98 06/06/17 05:52 06/06/17 09:55 06/06/17 05:52 06/06/17 10:25 06/06/17 05:52 Intake and Output: 06/06/17 06/06/17 06:59 18:59 Intake Total 1745 Output Total 1000 Balance 745 - Medications Medications: Current Medications Atorvastatin Calcium (Lipitor) 20 mg PO DIN [facility] Last Admin: 06/05/17 19:47 Dose: 20 mg Carvedilol (Coreg) 3.125 mg PO BID [facility] Last Admin: 06/06/17 09:55 Dose: 3.125 mg Furosemide (Lasix) 80 mg PO BID [facility] Last Admin: 06/06/17 10:25 Dose: Not Given Hydromorphone HCl (Dilaudid) 0.5 mg IVP Q4H PRN PRN Reason: Pain, severe (8-10) Last Admin: 06/05/17 22:36 Dose: 0.5 mg Insulin Human Lispro (Humalog Med) 0 units SC [facility] PRN Reason: Protocol Last Admin: 06/06/17 07:48 Dose: 1 units Lidocaine (Lidoderm) 1 ea TD DAILY [facility] Last Admin: 06/06/17 09:40 Dose: 1 ea Metformin HCl (Glucophage) 1,000 mg PO BID [facility] Last Admin: 06/06/17 09:41 Dose: 1,000 mg Ondansetron HCl (Zofran Inj) 4 mg IVP Q6H PRN PRN Reason: Nausea/Vomiting Ondansetron HCl (Zofran Inj) 4 mg IVP ONCE PRN PRN Reason: Nausea/Vomiting Oxycodone/Acetaminophen (Percocet 5/325 Mg Tab) 1 tab PO Q4H PRN PRN Reason: Pain, moderate (4-7) Stop: 06/08/17 16:42 Last Admin: 06/06/17 04:19 Dose: 1 tab Pantoprazole Sodium (Protonix Inj) 40 mg IVP DAILY [facility] Last Admin: 06/06/17 09:41 Dose: 40 mg - Labs Labs: 06/06/17 06:30 06/06/17 06:30 - Constitutional Appears: Non-toxic - Head Exam Head Exam: NORMAL INSPECTION - Eye Exam Eye Exam: EOMI, Normal appearance - ENT Exam ENT Exam: Mucous Membranes Moist - Neck Exam Neck Exam: Full ROM - Respiratory Exam Respiratory Exam: NORMAL BREATHING PATTERN. absent: Accessory Muscle Use, Respiratory Distress - Cardiovascular Exam Cardiovascular Exam: Tachycardia, REGULAR RHYTHM, +S1, +S2. absent: Bradycardia - GI/Abdominal Exam GI & Abdominal Exam: Soft, Tenderness, Normal Bowel Sounds Additional comments: RLQ pain, mild, no rebound tenderness - Extremities Exam Extremities Exam: Full ROM. absent: Pedal Edema - Back Exam Back Exam: Full ROM, NORMAL INSPECTION - Neurological Exam Neurological Exam: Alert, Awake, Oriented x3 - Psychiatric Exam Psychiatric exam: Normal Affect, Normal Mood - Skin Skin Exam: Dry, Intact, Normal Color, Warm Assessment and Plan - Assessment and Plan (Free Text) Assessment: 46 M s/p R inguinal hernia repair POD #1 Plan: incentive spirometer f/u diet tolerance, advance as tolerated c/w new pain medications monitor blood pressure f/u Cardiology consult No further surgical intervention at this time f/u with Dr. Pak in 1 week Laura Da Silva DO PGY1
[2017-06-06 12:25] VITALS: BP 103/75; RESP 16; TEMP 98
[2017-06-06 16:03] VITALS: PULSE 79
[2017-06-06] MEDS ORDERED: Magnesium Oxide 400 mg Tab UD PO SCH (18:00)
--- NOTE | 2017-06-06 23:14 | CARD ---
APPROVED REPORT EKG Measurement Heart [id number] <Conclusion> Normal sinus rhythm Possible Left atrial enlargement T wave abnormality, consider lateral ischemia Prolonged QT Abnormal ECG
--- NOTE | 2017-06-07 02:45 | OP ---
PROCEDURE DATE: 06/05/2017 SURGEON: Dr. Pak. BOWLING BALL GRADER AND MARKER: Dr. Siddiqui and Dr. Urena. ANESTHESIA: Regional block with IV sedation, Dr. Awan and Dr. Villalobos. PREOPERATIVE DIAGNOSIS: Right inguinal hernia. POSTOPERATIVE DIAGNOSIS: Right inguinal hernia. PROCEDURE: Right inguinal hernia repair with mesh. DESCRIPTION OF OPERATION: With the patient in the supine position having received IV sedation, ultrasound-guided blocks of the ilioinguinal and iliofemoral nerves were performed by anesthesia. The right brim was prepped and draped in the usual sterile manner. Additional 1% lidocaine and 0.5% Marcaine were infiltrated and a transverse incision was made in the right upper groin crease, taken down through the subcutaneous tissue. The patient had lost a large amount of weight and the external oblique was identified, but appeared to be quite flaccid, possibly due o large hernia protrusion previously. The external oblique was incised and the spermatic cord was identified and dissected as it passed over the pubic tubercle. A hernia sac was identified within the spermatic cord and dissected free of the underlying cord structures back to the level of the internal inguinal ring and the sac was opened, there were no incarcerated contents. The base of the sac was suture ligated with a 0-Vicryl suture at the level of the internal ring and the sac was amputated. A moderately sized defect was identified at the internal ring and a size medium ProLoop plug was positioned medial to the cord within the ring. The plug was sutured well beneath the transversalis layer using 2-0 Prolene. The flat attached portion of the hernia system was then trimmed to approximate the inguinal floor and positioned beneath the spermatic cord and sutured superiorly to the transversalis fascia and inferiorly to the shelving edge of the inguinal ligament beginning medially at the pubic tubercle and continuing laterally beyond the internal ring. The mesh was fixed over the plug using the previously placed Prolene sutures for fixation. When this had been completed, the external oblique was reapproximated with running suture of 0 Vicryl. The subcutaneous tissues were approximated with 3-0 Vicryl interrupted sutures and closure was performed with running subcuticular suture of 4-0 Monocryl and Dermabond. The patient tolerated the procedure well and transferred to the recovering room in stable condition. Estimated blood loss for the procedure was 15 mL. Tammy Pak MD [facility] # [id number]
--- NOTE | 2017-06-08 15:33 | CP.PCM.PN ---
Subjective - Date & Time of Evaluation Date of Evaluation: 06/06/17 Time of Evaluation: 12:00 - Subjective Subjective: General Surgery progress note from Dr. Pak Patient is seen and examined at bedside. Patient had low blood pressure with systolic in the 80s and 90s overnight. Blood pressure retaken at bedside 100/ 64mmHg. Patient states hes's not tolerating pain well. Overnight resident switched medication to percocet. Patient states percocet does not help. Patient denies fever, chills, nausea, vomiting, chest pain, shortness of breath. Patient admits to flatus and denies BM. Patient admits to pain at inguinal region and tingling at groin on the right. Patient states the prickling sensation also occurred when hernia protruded. Patient tolerated breakfast. Denies nausea and vomiting, new Lidoderm ordered for pain intolerance, now tolerating pain upon recheck Objective - Vital Signs/Intake and Output Vital Signs (last 24 hours): Temp Pulse Resp BP Pulse Ox 98 F 79 16 103/75 98 06/06/17 12:00 06/06/17 14:00 06/06/17 12:00 06/06/17 12:00 06/06/17 10:00 - Labs Labs: 06/06/17 06:30 06/06/17 06:30 - Additional Findings Additional findings: - Constitutional Appears: Non-toxic - Head Exam Head Exam: NORMAL INSPECTION - Eye Exam Eye Exam: EOMI, Normal appearance - ENT Exam ENT Exam: Mucous Membranes Moist - Neck Exam Neck Exam: Full ROM - Respiratory Exam Respiratory Exam: NORMAL BREATHING PATTERN. absent: Accessory Muscle Use, Respiratory Distress - Cardiovascular Exam Cardiovascular Exam: Tachycardia, REGULAR RHYTHM, +S1, +S2. absent: Bradycardia - GI/Abdominal Exam GI & Abdominal Exam: Soft, Tenderness, Normal Bowel Sounds Additional comments: RLQ pain, mild, no rebound tenderness - Extremities Exam Extremities Exam: Full ROM. absent: Pedal Edema - Back Exam Back Exam: Full ROM, NORMAL INSPECTION - Neurological Exam Neurological Exam: Alert, Awake, Oriented x3 - Psychiatric Exam Psychiatric exam: Normal Affect, Normal Mood - Skin Skin Exam: Dry, Intact, Normal Color, Warm Assessment and Plan - Assessment and Plan (Free Text) Assessment: 46 Male. status post right inguinal hernia repair Post operative day #1 Plan: incentive spirometer follow up with diet tolerance, advance as tolerated continue with new pain medications monitor blood pressure follow up with Cardiology consult No further surgical intervention at this time follow up with with Dr. Pak in 1 week Laura Da Silva DO PGY1
== END 2017-06-06 16:31 | disposition left against medical advice (07) ==
LOC: SDS 10:25 → 2RSO 18:54 → SDS 06-06 16:31
PROVIDERS: ATTEND Specialist
DX: K40.90 Unilateral inguinal hernia, without obstruction or gangrene, not specified as recurrent (principal); I47.2 Ventricular tachycardia; I11.0 Hypertensive heart disease with heart failure; I50.9 Heart failure, unspecified; I42.0 Dilated cardiomyopathy; E11.9 Type 2 diabetes mellitus without complications; F14.10 Cocaine abuse, uncomplicated; F12.10 Cannabis abuse, uncomplicated; F17.210 Nicotine dependence, cigarettes, uncomplicated; Z79.84 Long term (current) use of oral hypoglycemic drugs; Z95.810 Presence of automatic (implantable) cardiac defibrillator
CPT/HCPCS: 36415 ×2; 49505; 80048 ×2; 82948 ×2; 83735; 85025; 85027; 88302; 93005; C9113 ×2; J0690; J1170; J1885; J2250; J2405; J3010; J3475; J7040 ×2; J7120 ×2

== ENCOUNTER 2017-08-05 17:55 | Emergency (ER) | payer MEDICARE, MEDICAID ==
[2017-08-05 17:55] VITALS: PULSE 112
[2017-08-05 18:18] VITALS: TEMP 98.1
[2017-08-05 18:22] VITALS: BMI 27.2
[2017-08-05 20:09] LABS: BASO # 0.03 K/mm3 (0.0-2.0); BASO % 0.4 % (0.0-3.0); EOS # 0.1 (0.0-0.7); EOS % 1.7 % (1.5-5.0); GRAN # 4.81 (1.4-6.5); HEMATOCRIT 43.5 % (42.0-52.0); LYMPH # 1.3 (1.2-3.4); LYMPH % 18.3 % (22.0-35.0); MEAN CELL VOLUME 92.4 fl (80.0-105.0); MEAN CORPUSCULAR HEMOGLOBIN 31.2 pg (25.0-35.0); MEAN CORPUSCULAR HGB CONC 33.8 g/dl (31.0-37.0); MEAN PLATELET VOLUME 10.4 fl (7.0-11.0); MONO # 0.7 (0.1-0.6); MONO % 9.6 % (1.0-6.0); RED CELL DISTRIBUTION WIDTH 13.4 % (11.5-14.5); WHITE BLOOD COUNT 6.9 10^3/ul (4.5-11.0)
--- NOTE | 2017-08-05 20:11 | ED PDOC ---
Arrival/HPI - General Chief Complaint: Shortness Of Breath Time Seen by Provider: 08/05/17 18:12 Historian: Patient - History of Present Illness Narrative History of Present Illness (Text): 08/05/17 20:10 A 46 year old male, whose past medical history includes CHF (ef 15-20%), s/p pacemaker placement, hypertension, hyperlipidemia, TIAs, depression and diabetes , presents to the emergency department complaining of shortness of breath and left 4th and 5th digit numbness. Patient reports today he was doing more walking , more short of breath, no difference in exercise tolerance. Patient also reports that after buying chicken, his left arm ''took off" with a chorea form type of movement. Notes he grabbed his hand and held on to it and now he is left with residual numbness to the left 4th and 5th digits. Patient admits to drinking some alcohol today and cocaine use two days ago, denies daily alcohol and drug use. Patient also notes he is depressed because his is in rehab. Reports he moved 8 tons of tiles two days ago and a lack of sleep, which he thinks are contributing to these symptoms. Denies any other complaints at this time. Symptom Onset: Sudden Symptom Course: Unchanged Activities at Onset: Rest Modifying Factors (Text): none Past Medical History - Provider Review Nursing Documentation Reviewed: Yes - Infectious Disease Hx of Infectious Diseases: None - Cardiac Hx Congestive Heart Failure: Yes Hx Hypertension: Yes Other/Comment: defibrillator - Pulmonary Hx Respiratory Disorders: No - Neurological Hx Neurological Disorder: No - HEENT Hx HEENT Disorder: No - Renal Hx Renal Disorder: No - Endocrine/Metabolic Hx Diabetes Mellitus Type 2: Yes - Hematological/Oncological Hx Blood Disorders: No - Integumentary Hx Dermatological Disorder: No - Musculoskeletal/Rheumatological Hx Falls: No - Gastrointestinal Hx Gastrointestinal Disorders: No - Genitourinary/Gynecological Hx Genitourinary Disorders: No - Psychiatric Hx Psychophysiologic Disorder: No Hx Substance Use: Yes (Cocaine 30 years ago) - Surgical History Hx Cholecystectomy: Yes Other/Comment: defibrilator, gallbladder removed. - Anesthesia Hx Anesthesia: Yes Hx Anesthesia Reactions: No Hx Malignant Hyperthermia: No Family/Social History - Physician Review Nursing Documentation Reviewed: Yes Family/Social History: No Known Family HX Smoking Status: Light Smoker < 10 Cigarettes Daily Hx Alcohol Use: No Hx Substance Use: Yes (Cocaine 30 years ago) Allergies/Home Meds Allergies/Adverse Reactions: Allergies fosinopril [From Monopril] Allergy (Severe, Verified 06/05/17 11:28) ANGIOEDEMA lisinopril Allergy (Severe, Verified 06/05/17 11:28) ANGIOEDEMA Home Medications: Home Meds Medication Instructions Recorded Confirmed Furosemide [Lasix] 80 mg PO BID 06/01/17 08/05/17 Carvedilol [Coreg] 3.125 mg PO BID 06/05/17 08/05/17 DiphenhydrAMINE [Benadryl] 25 mg PO PRN PRN 06/05/17 08/05/17 Ivabradine HCl [Corlanor] 5 mg PO DAILY 06/05/17 08/05/17 MetFORMIN [glucoPHAGE] 1,000 mg PO BID 06/05/17 08/05/17 Simvastatin [Zocor] 40 mg PO DAILY 06/05/17 08/05/17 Review of Systems - Physician Review All systems were reviewed & negative as marked: Yes - Review of Systems Respiratory: SOB Musculoskeletal: Other (left 4th and 5th digit numbness) Physical Exam Vital Signs Reviewed: Yes Vital Signs Temp Pulse Resp BP Pulse Ox 08/05/17 21:06 97 H 18 105/77 97 08/05/17 18:47 16 08/05/17 18:18 98.1 F 98 H 18 140/57 L 96 Temperature: Afebrile Blood Pressure: Hypotensive Pulse: Regular Respiratory Rate: Normal Appearance: Positive for: Well-Appearing, Non-Toxic, Comfortable Pain Distress: None Mental Status: Positive for: Alert and Oriented X 3 - Systems Exam Head: Present: Atraumatic, Normocephalic Pupils: Present: PERRL Extroacular Muscles: Present: EOMI Conjunctiva: Present: Normal Mouth: Present: Moist Mucous Membranes Neck: Present: Normal Range of Motion Respiratory/Chest: Present: Clear to Auscultation, Good Air Exchange. No: Respiratory Distress, Accessory Muscle Use Cardiovascular: Present: Murmurs (systolic ejection murmur) Abdomen: Present: Normal Bowel Sounds. No: Tenderness, Distention, Peritoneal Signs Back: Present: Normal Inspection Upper Extremity: Present: Normal Inspection. No: Cyanosis, Edema Lower Extremity: Present: Normal Inspection. No: Edema Neurological: Present: GCS=15, CN II-XII Intact, Speech Normal Skin: Present: Warm, Dry, Normal Color. No: Rashes Psychiatric: Present: Alert, Oriented x 3, Normal Insight, Normal Concentration Medical Decision Making ED Course and Treatment: 08/05/17 20:07 Impression: A 46 year old male with shortness of breath and left 4th and 5th digit numbness. Plan: -- EKG -- chest xray -- labs -- Reassess and disposition Prior Visits: Notes and results from previous visits were reviewed. Patient last reported to the emergency department on 05/31/17 for evaluation of right femoral hernia and bilateral lower extremity swelling. Progress Notes: 08/05/17 21:20 EKG: Ordered, reviewed, and independently interpreted the EKG. Rate : 98 BPM Rhythm : NSR, borderline sinus tach Interpretation : qtc 495, old T wave inversions, relative to ekg from 06/06/17 in 1 avl and v6, subtle elevated St/T segments in v2 and v3, no acute changes from prior ekg 08/05/17 23:19 Pt. advised to stay for further investigation with a second set of ce's/ekg but unwilling to stay and states that he will follow up with his pmd. Will be discharged and advised to continue with his regular medical management as well as take an extra 40 mg lasix every other day for the next week. 08/05/17 23:19 - Lab Interpretations Lab Results: 08/05/17 19:45 08/05/17 19:45 Lab Results 08/05/17 19:45: Sodium 138, Potassium 3.1 L, Chloride 95 L, Carbon Dioxide 31, Anion Gap 15, BUN 26 H, Creatinine 1.1, Est GFR ( Amer) > 60, Est GFR ( Non-Af Amer) > 60, Random Glucose 113 H, Calcium 9.3, Total Bilirubin 1.0, AST 85 H D, ALT 108 H, Alkaline Phosphatase 99, Lactate Dehydrogenase 614, Total Creatine Kinase 254 H, CK-MB (CK-2) 4.3 H, CK-MB (CK-2) % Cancelled, Troponin I 0.06 D, NT-Pro-B Natriuret Pep 2860 H, Total Protein 8.0, Albumin 4.5, Globulin 3.5, Albumin/Globulin Ratio 1.3 08/05/17 19:45: PT 12.3, INR 1.13 H, APTT 29.2 08/05/17 19:45: WBC 6.9 D, RBC 4.71, Hgb 14.7, Hct 43.5, MCV 92.4, MCH 31.2, MCHC 33.8, RDW 13.4, Plt Count 241, MPV 10.4, Gran % 70.0 H, Lymph % (Auto) 18.3 L, Hughes % (Auto) 9.6 H, Eos % (Auto) 1.7, Baso % (Auto) 0.4, Gran # 4.81, Lymph # 1.3, Hughes # 0.7 H, Eos # 0.1, Baso # 0.03 I have reviewed the lab results: Yes - RAD Interpretation Radiology Orders: 08/05/17 19:53 CHEST TWO VIEWS (PA/LAT) [RAD] Stat - EKG Interpretation Interpreted by ED Physician: Yes Type: 12 lead EKG - Medication Orders Current Medication Orders: Discontinued Medications Potassium Chloride (Potassium Chloride Oral Soln) 40 meq PO STAT STA Stop: 08/05/17 22:58 - Scribe Statement The provider has reviewed the documentation as recorded by the Jaiden Cruz Provider Scribe Attestation: All medical record entries made by the Scribe were at my direction and personally dictated by me. I have reviewed the chart and agree that the record accurately reflects my personal performance of the history, physical exam, medical decision making, and the department course for this patient. I have also personally directed, reviewed, and agree with the discharge instructions and disposition. Disposition/Present on Arrival - Present on Arrival Any Indicators Present on Arrival: Yes History of DVT/PE: Yes History of Uncontrolled Diabetes: No Urinary Catheter: No History of Decub. Ulcer: No History Surgical Site Infection Following: None - Disposition Have Diagnosis and Disposition been Completed?: Yes Diagnosis: Hypokalemia, CHF (congestive heart failure) Disposition: HOME/ ROUTINE Disposition Time: 23:23 Patient Plan: Discharge Condition: FAIR Discharge Instructions (ExitCare): Heart Failure (ED), Hyperkalemia (ED) Print Language: KOREAN Additional Instructions: Continue with your regular medical management, take an extra 40 mg of lasix every other day over the next week, eat a banana day while taking extra lasix as well as your regular potassium supplementatio as ordered by your regular doctor. Return for worsiening symptoms. Referrals: PCP,NO [Primary Care Provider] - Follow up with primary Forms: [employer] (Mauritanian)
[2017-08-05 20:22] LABS: INR 1.13 (0.93-1.08); PARTIAL THROMBOPLASTIN TIME 29.2 Seconds (25.1-36.5)
[2017-08-05 22:03] LABS: POTASSIUM 3.1 mmol/L (3.6-5.0); SODIUM 138 mmol/L (132-148)
[2017-08-05 22:06] LABS: TROPONIN I 0.06 ng/mL
[2017-08-05] MEDS ORDERED: Potassium Chloride 40 mEq/30 ml LIQ UD PO STA (22:57)
[2017-08-05 23:37] VITALS: BP 123/77; PULSE 90; RESP 16; O2SAT 100
[2017-08-06 01:23] LABS: ALB/GLOB RATIO 1.2 (1.1-1.8); ALKALINE PHOSPHATASE 105 U/L (38-126); ALT/SGPT 93 U/L (7-56); AST/SGOT 82 U/L (17-59); BILIRUBIN,TOTAL 1.1 mg/dL (0.2-1.3); BLOOD UREA NITROGEN 26 mg/dL (7-21); CALCIUM 9.2 mg/dL (8.4-10.5); CARBON DIOXIDE 31 mmol/L (21-33); CHLORIDE 95 mmol/L (98-107); GFR AFRICAN-AMERICAN > 60; GLUCOSE,RANDOM 113 mg/dL (70-110); TOTAL PROTEIN 7.8 g/dL (5.8-8.3)
--- NOTE | 2017-08-06 23:39 | CARD ---
APPROVED REPORT EKG Measurement Heart [id number] <Conclusion> Normal sinus rhythm Left atrial enlargement Left axis deviation T wave abnormality, consider lateral ischemia Prolonged QT Abnormal ECG
== END 2017-08-05 23:37 | disposition home or self-care (01) ==
LOC: ED 17:55
DX: I11.0 Hypertensive heart disease with heart failure (principal); I50.9 Heart failure, unspecified; E87.6 Hypokalemia; E11.9 Type 2 diabetes mellitus without complications; F17.210 Nicotine dependence, cigarettes, uncomplicated
CPT/HCPCS: 80053; 82550; 82553; 83615; 83880; 84484; 85025; 85610; 85730; 93005; 99285; J3480

== ENCOUNTER 2018-12-20 11:05 | Emergency (ER) | payer OTHER, MEDICARE ==
[2018-12-20 11:05] VITALS: PULSE 112; BMI 27.2
[2018-12-20 11:15] VITALS: RESP 18; TEMP 97.6; O2SAT 100
--- NOTE | 2018-12-20 11:37 | ED PDOC ---
Arrival/HPI - General Chief Complaint: Abnormal Skin Integrity Time Seen by Provider: 12/20/18 11:26 Historian: Patient - History of Present Illness Narrative History of Present Illness (Text): 12/20/18 11:23 A 48 year old male, whose past medical history includes CHF (ef 15-20%), s/p pacemaker placement, hypertension, hyperlipidemia, TIAs, depression and diabetes, presents to the emergency department complaining of injury to the left ring finger s/p using a planar at work. Patient is right hand dominate. He states he hit his left ring finger on the planar taking off a large portion of the tip of finger. Patient's last tetanus is 3 months ago. Patient denies any other injuries or any other complaints. Time/Duration: Prior to Arrival Symptom Onset: Sudden Activities at Onset: Light Context: Work Past Medical History - Provider Review Nursing Documentation Reviewed: Yes - Infectious Disease Hx of Infectious Diseases: None - Cardiac Hx Congestive Heart Failure: Yes Hx Hypertension: Yes Other/Comment: defibrillator - Pulmonary Hx Respiratory Disorders: No - Neurological Hx Neurological Disorder: No - HEENT Hx HEENT Disorder: No - Renal Hx Renal Disorder: No - Endocrine/Metabolic Hx Diabetes Mellitus Type 2: Yes - Hematological/Oncological Hx Blood Disorders: No - Integumentary Hx Dermatological Disorder: No - Musculoskeletal/Rheumatological Hx Falls: No - Gastrointestinal Hx Gastrointestinal Disorders: No - Genitourinary/Gynecological Hx Genitourinary Disorders: No - Psychiatric Hx Psychophysiologic Disorder: No Hx Substance Use: Yes (Cocaine 30 years ago) - Surgical History Hx Cholecystectomy: Yes Other/Comment: defibrilator, gallbladder removed. - Anesthesia Hx Anesthesia: Yes Hx Anesthesia Reactions: No Hx Malignant Hyperthermia: No Family/Social History - Physician Review Nursing Documentation Reviewed: Yes Family/Social History: No Known Family HX Smoking Status: Current Some Days Smoker Hx Alcohol Use: No Hx Substance Use: Yes (Cocaine 30 years ago) Allergies/Home Meds Allergies/Adverse Reactions: Allergies fosinopril [From Monopril] Allergy (Severe, Verified 12/20/18 11:15) ANGIOEDEMA lisinopril Allergy (Severe, Verified 12/20/18 11:15) ANGIOEDEMA Home Medications: Home Meds Medication Instructions Recorded Confirmed Furosemide [Lasix] 80 mg PO BID 06/01/17 12/20/18 Carvedilol [Coreg] 3.125 mg PO BID 06/05/17 12/20/18 DiphenhydrAMINE [Benadryl] 25 mg PO PRN PRN 06/05/17 12/20/18 Ivabradine HCl [Corlanor] 5 mg PO DAILY 06/05/17 12/20/18 MetFORMIN [glucoPHAGE] 1,000 mg PO BID 06/05/17 12/20/18 Simvastatin [Zocor] 40 mg PO DAILY 06/05/17 12/20/18 Review of Systems - Physician Review All systems were reviewed & negative as marked: Yes - Review of Systems Skin: Other (injury to the left ring finger ) Neurological: absent: Dizziness Physical Exam Vital Signs Reviewed: Yes Vital Signs Temp Pulse Resp BP Pulse Ox 12/20/18 11:13 97.6 F 75 18 120/86 100 Temperature: Afebrile Blood Pressure: Normal Pulse: Regular Respiratory Rate: Normal Appearance: Positive for: Well-Appearing, Non-Toxic, Uncomfortable Pain Distress: None Mental Status: Positive for: Alert and Oriented X 3 - Systems Exam Back: No: Normal Inspection Upper Extremity: Present: Normal ROM (all 5 figners), Capillary Refill < 2s, Other (large defect to the left ring finger on the dorsal affecting the nail. Full thickness. Tip of the nail affected to the DIP on the dorsum of the left ring finger. Does not affect the finger pad. ). No: Cyanosis, Edema Lower Extremity: No: Normal Inspection Neurological: Present: GCS=15, Speech Normal Skin: Present: Warm, Dry, Normal Color. No: Rashes Psychiatric: Present: Alert, Oriented x 3, Normal Insight, Normal Concentration Medical Decision Making ED Course and Treatment: 12/20/18 11:22 Impression: 48 year old male presents s/p left ring finger injury while using a planter at work. Plan: -- Left hand x-ray -- Reassess and disposition Progress Notes: PROCEDURE: Left Hand and 4th digit radiographs. Dictator : Alan Brown MD Report Date : 12/20/2018 12:54:11 IMPRESSION: Soft tissue injury tip of the 4th digit. No foreign body 12/20/18 12:[address] Esquivel who recommends to put Xerofoam on wound and to followup in his office in 3 days. Wound was dressed by nurse, checked by me and is hemostatic. 12/20/18 13:15 D/c instructions d/w patient. Patient provided w/Rx for Motin 800mg and Percocet (instructed not to drive or operate heavy machinery while taking). - RAD Interpretation Radiology Orders: 12/20/18 11:29 HAND LEFT 4TH DIGIT (FINGER) [RAD] Stat [employer] Operator: Radiologist - Scribe Statement The provider has reviewed the documentation as recorded by the Scribe Anne Sosa All medical record entries made by the Scribe were at my direction and p ersonally dictated by me. I have reviewed the chart and agree that the record accurately reflects my personal performance of the history, physical exam, medical decision making, and the department course for this patient. I have also personally directed, reviewed, and agree with the discharge instructions and disposition Disposition/Present on Arrival - Present on Arrival Any Indicators Present on Arrival: Yes History of DVT/PE: Yes History of Uncontrolled Diabetes: No Urinary Catheter: No History of Decub. Ulcer: No History Surgical Site Infection Following: None - Disposition Have Diagnosis and Disposition been Completed?: Yes Diagnosis: Skin avulsion, Nail avulsion, finger Disposition: HOME/ ROUTINE Disposition Time: 13:25 Patient Plan: Discharge Condition: STABLE Discharge Instructions (ExitCare): Wound Care (DC), Nail Avulsion (DC) Additional Instructions: CESAR AIKEN, thank you for letting us take care of you today. Your provider was Lakia Swan MD and you were treated for CUT FINGER TO THE BONE. The emergency medical care you received today was directed at your acute symptoms. If you were prescribed any medication, please fill it and take as directed. It may take several days for your symptoms to resolve. Return to the Emergency Department if your symptoms worsen, do not improve, or if you have any other problems. Please contact Dr. Esquivel for an appointment on December 23physicians/clinics you have been referred to that are listed on the Patient Visit Information form that is included in your discharge packet. Bring any paperwork you were given at discharge with you along with any medications you are taking to your follow up visit. Our treatment cannot replace ongoing medical care by a primary care provider outside of the emergency department. Thank you for allowing the [facility] team to be part of your care today. Prescriptions: Ibuprofen [Motrin Tab] 800 mg PO TID PRN #30 tab PRN Reason: Pain, Moderate (4-7) oxyCODONE/Acetaminophen [Percocet 5/325 mg Tab] 1 ea PO Q6H PRN #10 tab PRN Reason: Pain, Severe (8-10) Referrals: Kyree Esquivel MD [Staff Provider] - Follow up with primary Forms: [employer] (Welsh)
[2018-12-20] MEDS ORDERED: Oxycodone/Acetaminophen 10/325 mg Tab PO STA (11:59)
--- NOTE | 2018-12-20 12:58 | RAD ---
PROCEDURE: Left Hand and 4th digit radiographs. HISTORY: injury COMPARISON: None. TECHNIQUE: 3 views obtained. FINDINGS: BONES: Normal. No fracture. JOINTS: Normal. No osteoarthritic changes. SOFT TISSUES: Soft tissue injury tip of the 4th digit. No foreign body OTHER FINDINGS: None. IMPRESSION: Soft tissue injury tip of the 4th digit. No foreign body
[2018-12-20 13:34] VITALS: BP 121/80; PULSE 73
== END 2018-12-20 13:46 | disposition home or self-care (01) ==
LOC: ED 11:05
DX: S61.305A Unspecified open wound of left ring finger with damage to nail, initial encounter (principal); W22.8XXA Striking against or struck by other objects, initial encounter; Y99.0 Civilian activity done for income or pay; E11.9 Type 2 diabetes mellitus without complications; E78.5 Hyperlipidemia, unspecified; I50.9 Heart failure, unspecified; Z95.0 Presence of cardiac pacemaker